=== PATIENT | female | born 1950 | race Caucasian/White ===

== ENCOUNTER 2021-08-17 14:08 | Outpatient (REF) | payer MEDICARE, OTHER, SELFPAY ==
[2021-08-17 14:57] LABS: Anion Gap 12 (12-20); Blood Urea Nitrogen 16 mg/dL (9-16); Calcium 9.1 mg/dL (8.4-10.2); Carbon Dioxide 26 mmol/L (22-29); Chloride 109 mmol/L (96-108); Estimated Glomerular Filt Rate 40; Potassium 4.4 mmol/L (3.3-5.1); Sodium 143 mmol/L (135-145)
== END 2021-08-17 14:09 | disposition home or self-care (01) ==
LOC: HO.LAB 14:08
PROVIDERS: PCP Family Medicine; Visit Provider Internal Medicine Nephrology
DX: N18.30 Chronic kidney disease, stage 3 unspecified (principal)
CPT/HCPCS: 36415; 80051; 82310; 82565; 84520

== ENCOUNTER 2023-12-11 14:16 | Outpatient (REF) | payer MEDICARE, OTHER, MEDICAID, SELFPAY ==
[2023-12-11 15:42] LABS: Anion Gap 14 (12-20); Blood Urea Nitrogen 17 mg/dL (9-16); Carbon Dioxide 26 mmol/L (22-29); Chloride 108 mmol/L (96-108); Estimated Glomerular Filt Rate 37; Potassium 4.3 mmol/L (3.3-5.1); Sodium 144 mmol/L (135-145)
[2023-12-11 17:53] LABS: Creatinine Urine 399.76 mg/dL; Protein/Creatinine Ratio, Ur 0.29 (<0.2); Total Protein Urine Random 114 mg/dL (<12)
== END 2023-12-11 14:17 | disposition home or self-care (01) ==
LOC: HO.LAB 14:16
PROVIDERS: PCP Family Medicine; Visit Provider Internal Medicine Nephrology
DX: I10 Essential (primary) hypertension (principal)
CPT/HCPCS: 36415; 80051; 82565; 82570; 84156; 84520

== ENCOUNTER 2023-12-13 16:08 | Outpatient (AMB) | payer MEDICARE, OTHER, MEDICAID, SELFPAY ==
--- NOTE | 2023-12-13 16:11 | HO.NEPHOV ---
HPI HPI Comments History of Present Illness Details I had the privilege of seeing Leila in follow-up of her chronic kidney disease and hypertension. Her overactive bladder symptoms have been better on medications. She had gastric sleeve surgery by Dr. Dominguez in the past. She has not had any renal stones. Her current medications also had helped her losing some weight. She does not have any flank pain, hematuria, dysuria, nausea, vomiting, suprapubic pain, shortness of breath, pedal edema or orthostatic symptoms. She avoids nonsteroidal anti-inflammatories and maintain good hydration. All other systemic symptoms were reviewed and were negative. [facility] Medical History (Updated 12/13/23 @ 16:14 by Rony Spears MD) Chronic kidney disease Hypertension Surgical History (Updated 12/13/23 @ 16:17 by Helen Ye MA) History of back surgery History of cholecystectomy H/O gastric sleeve H/O hand surgery H/O wrist surgery History of ankle surgery Family History (Updated 12/13/23 @ 16:17 by Helen Ye MA) Father Cancer Social History (Updated 12/13/23 @ 16:15 by Helen Ye MA) Alcohol intake: never Patient Tobacco Use Status: Former Tobacco user Use of substances other than those prescribed or required for medical reasons: No Vital Signs 12/13/23 16:13 Height 5 ft 6 in Weight 249 lb 8 oz BMI 40.3 BP 142/82 H Blood Pressure Location Rt brachial Position Sitting Pulse 67 Pulse Source Pulse Oximeter Pulse Oximetry (%) 98 Oxygen Delivery Method Room Air Physical Exam Vital Signs: Last Vital Signs Pulse 67 12/13/23 16:13 BP 142/82 H 12/13/23 16:13 Pulse Ox 98 12/13/23 16:13 Oxygen Delivery Method Room Air 12/13/23 16:13 BMI result Body Mass Index 40.3 Const General: comfortable and no acute distress Orientation/consciousness: patient oriented x3 HEENT Head: Yes normocephalic Mouth: Normal oral and palatal mucosa present Eyes EOM: EOMs intact bilaterally Neck Neck: Yes supple Resp Auscultation: clear to auscultation bilaterally Cardio Jugular venous distension: no JVD Rate: regular rate GI Palpation (GI): Soft to palpation Auscultation: normal bowel sounds General: Yes no CVA tenderness Back/Spine/Pelvis Back: no CVA tenderness Skin General skin exam: no rashes or lesions noted Neuro General: patient oriented x3 and moves all extremities Extrem General: Yes no pedal edema Assessment & Plan Assessment & Plan (1) CKD (chronic kidney disease) stage 3, GFR 30-59 ml/min: Code(s): N18.30 - Chronic kidney disease, stage 3 unspecified Qualifiers: Chronic kidney disease stage 3 subtype: stage 3a (GFR 45-59) Qualified Code(s): N18.31 - Chronic kidney disease, stage 3a (2) Hypertension: Code(s): I10 - Essential (primary) hypertension Qualifiers: Hypertension type: primary hypertension Qualified Code(s): I10 - Essential (primary) hypertension Plan Leila has mild CKD from vascular disease. Her renal functions had been stable. She has on a low-sodium diet. She should continue to do regular exercise. Her volume status is optimal. She is on MALKA-inhibitor. Her blood pressure had been well controlled on current medication regimen. She maintains good hydration. She avoids nonsteroidal anti-inflammatories. Her electrolytes are acceptable. She does not have significant proteinuria. She will benefit from a bit more weight loss. She likely is a great candidate for [employer] or [employer] I did not make any changes today. All questions answered. Follow-up given. Orders: Orders Electrolytes Today I10 - Essential (primary) hypertension, N18.30 - Chronic kidney disease, stage 3 unspecified Calcium Today I10 - Essential (primary) hypertension, N18.30 - Chronic kidney disease, stage 3 unspecified Protein Creatinine Ratio, Ur Today I10 - Essential (primary) hypertension, N18.30 - Chronic kidney disease, stage 3 unspecified Creatinine Today I10 - Essential (primary) hypertension, N18.30 - Chronic kidney disease, stage 3 unspecified Blood Urea Nitrogen Today I10 - Essential (primary) hypertension, N18.30 - Chronic kidney disease, stage 3 unspecified Coding Level of Care Code Est Pt Level 3 (52606) Diagnoses Stage 3a chronic kidney disease N18.31 Chronic kidney disease stage 3 subtype: stage 3a (GFR 45-59) Primary hypertension I10 Hypertension type: primary hypertension Results Reviewed Nephrology Results: Sodium 144 mmol/L (135-145) 12/11/23 Potassium 4.3 mmol/L (3.3-5.1) 12/11/23 Chloride 108 mmol/L (96-108) 12/11/23 Carbon Dioxide 26 mmol/L (22-29) 12/11/23 BUN 17 mg/dL (9-16) H 12/11/23 Creatinine 1.39 mg/dL (0.5-1.4) 12/11/23 Calcium 9.1 mg/dL (8.4-10.2) 08/17/21 Phosphorus 2.9 MG/DL (2.7-4.5) 12/31/19 Urine Protein TRACE (NEG - TRACE) 12/31/19 Urine Creatinine 399.76 mg/dL 12/11/23 Protein/Creatinin Ratio 0.29 (<0.2) H 12/11/23
[2023-12-13 16:13] VITALS: BP 142/82; PULSE 67; O2SAT 98; BMI 40.3
== END 2023-12-13 16:36 | disposition home or self-care (01) ==
LOC: HO.HKA 16:08
PROVIDERS: PCP Family Medicine; Visit Provider Internal Medicine Nephrology
DX: N18.31 Chronic kidney disease, stage 3a (principal); I10 Essential (primary) hypertension
CPT/HCPCS: 99213

== ENCOUNTER → 2023-12-13 16:08 | Outpatient (BNVA) | payer MEDICARE, OTHER, MEDICAID, SELFPAY | PROVIDERS: PCP Family Medicine; Visit Provider Internal Medicine Nephrology | DX: I12.9 Hypertensive chronic kidney disease with stage 1 through stage 4 chronic kidney disease, or unspecified chronic kidney disease (principal); N18.31 Chronic kidney disease, stage 3a | CPT/HCPCS: 99212 ==

== ENCOUNTER 2024-01-26 11:01 | Day surgery (SDC) | payer MEDICARE, OTHER, SELFPAY ==
--- NOTE | 2024-01-26 11:55 | P.CONAN_ITS ---
[facility] / [facility] Active Problems Active Problems: All Active Problems CKD (chronic kidney disease) stage 3, GFR 30-59 ml/min (Acute) Hypertension (Acute) Past Medical History Medical History (Updated 01/25/24 @ 12:12 by Dayna Walsh RN) IBS (irritable bowel syndrome) GERD (gastroesophageal reflux disease) Depression Asthma Elevated cholesterol Diabetes Chronic kidney disease Hypertension Family History Family History (Updated 12/13/23 @ 16:17 by Helen Ye MA) Father Cancer Family history of problems with anesthesia: No Surgical History Surgical History (Updated 01/25/24 @ 12:19 by Dayna Walsh RN) Hx of laparoscopic gastric banding Hx of foot surgery History of tubal ligation History of esophagogastroduodenoscopy (EGD) H/O colonoscopy History of back surgery History of cholecystectomy H/O gastric sleeve H/O hand surgery H/O wrist surgery History of ankle surgery History of Problems with Anesthesia: No Social History Social History (Updated 12/13/23 @ 16:15 by Helen Ye MA) Alcohol intake: never Patient Tobacco Use Status: Former Tobacco user Quit Date: 25 years Meds Allergies Allergy/AdvReac Type Severity Reaction Status Date / Time codeine [CODEINE] Allergy Unknown NAUSEA & Unverified 07/30/20 14:53 VOMITING oxycodone [From PERCOCET] Allergy Unknown NAUSEA & Unverified 07/30/20 14:53 VOMITING theophylline [From JEANETH-DUR] Allergy Unknown NAUSEA & Unverified 07/30/20 14:53 VOMITING Active Medications: Current Medications Sodium Biphosphate/Sodium Phosphate (Sodium Phosphate,[place]-Dibasic 133 Ml Enema) 133 ml MT ONCE PRN PRN Reason: Poor Colonoscopy Prep Results Home Medications Medication Instructions Recorded Confirmed Last Taken Type aspirin 81 mg tablet,delayed 81 mg PO DAILY 12/13/23 01/26/24 Unknown History release cholecalciferol (vitamin D3) 25 25 mcg PO DAILY 12/13/23 01/26/24 Unknown History mcg (1,000 unit) capsule cholecalciferol (vitamin D3) 250 250 mcg PO QDAY 12/13/23 01/26/24 Unknown History mcg (10,000 unit) capsule dulaglutide 4.5 mg/0.5 mL See Rx Instructions .Route .COMPLEX 12/13/23 01/16/24 History subcutaneous pen injector mg (Trulicity) latanoprost 0.005 % eye drops drp ophthalmic (eye) 12/13/23 Unknown History lisinopril 2.5 mg tablet 2.5 mg PO DAILY 12/13/23 01/26/24 Unknown History metoprolol succinate 25 mg 25 mg PO DAILY 12/13/23 01/26/24 Unknown History tablet,extended release 24 hr pravastatin 20 mg tablet 20 mg PO DAILY 12/13/23 01/26/24 Unknown History tizanidine 2 mg tablet 2 mg PO TID 12/13/23 01/26/24 Unknown History tramadol 50 mg tablet 50 mg PO Q6H PRN Pain 12/13/23 01/26/24 Unknown History trazodone 300 mg tablet 300 mg PO BEDTIME 12/13/23 01/26/24 Unknown History venlafaxine 225 mg tablet,extended 225 mg PO DAILY 01/25/24 01/25/24 Unknown History release 24 hr Exam Airway Mallampati Class: IV TM Dist: <=3cm Neck ROM: Full Loose/Missing/Broken Teeth: Yes (very poor dentition with multiple teeth missing and decayed) Heart: rrr Lungs: diminished but clear Other: less than 4 mets, very deconditioned, asymptomatic bundle branch block Assessment and Plan Assessment Anesthesia Assessment: Anesthesia Plan Discussed and Chart Reviewed Final Anesthetic Review Family History of Problems with Anesthesia: No History of Problems with Anesthesia: No NPO: Yes ASA Class: III Final Preanesthetic Review: No Changes in Pt Med Stat, Meds/Allgs Chart Reviewed, Consent Obtained/Reviewed and Anes Risks/Benef Reviewed Patient Risk: High Procedure Risk: Intermediate Anesthetic Plan Anesthetic Plan: MAC: Disposition: Standard PACU
[2024-01-26 12:02] VITALS: BMI 37.6
[2024-01-26 12:28] LABS: Glucose, Whole Blood 161 mg/dL (60-115)
[2024-01-26] MEDS: Lactated Ringers 1,000 ML 50 ML IVCONT (12:31)
--- NOTE | 2024-01-26 13:31 | P.BOP_ITS ---
Brief Operative Note Date of Service: 01/26/24 Pre-op diagnosis: Screening Post-op diagnosis: other (Colon polyps) Procedure: Colonoscopy to the cecum and TI with hot snare polypectomy x 2 at 20cm and AC, and bx/removal of TC polyps Surgeon: Addison Weinstein MD Anesthesia: MAC Was an Entry Driver Operator used for this Procedure?: No Estimated blood loss (mL): 2.0 Pathology: other (A. Polyp at 20cm B. Transverse colon polyps C. Ascending colon polyp) Condition: stable Disposition: PACU
[2024-01-26 13:38] VITALS: BP 90/46; PULSE 66; RESP 16; TEMP 36.1; O2SAT 93
[2024-01-26 13:53] VITALS: BP 116/66; PULSE 66; RESP 16; TEMP 36.3; O2SAT 94
--- NOTE | 2024-01-26 14:08 | OP_ITS ---
DATE OF SERVICE: 01/26/2024 SURGEON: Addison Weinstein MD INDICATIONS: The patient presents for evaluation of personal history of tubular adenoma of the colon and colorectal cancer screening. Full consent has been obtained from her for this, including risks of bleeding and perforation. PREOPERATIVE DIAGNOSIS: Colorectal cancer screening and personal history of tubular adenoma of the colon. POSTOPERATIVE DIAGNOSIS: PROCEDURE PERFORMED: Colonoscopy to the cecum and terminal ileum with hot snare polypectomy x2, and biopsy and removal of polyps. ESTIMATED BLOOD LOSS: COMPLICATIONS: ANESTHESIA: Monitored anesthesia care. ASSISTANTS: SPECIMENS: POSTOPERATIVE DIAGNOSES: Colorectal cancer screening and personal history of tubular adenoma of the colon, colon polyps, diverticulosis, and internal hemorrhoids. DESCRIPTION OF PROCEDURE: The patient was placed in the left lateral decubitus position. The digital rectal exam revealed no abnormalities. The Olympus video pediatric colonoscope was entered into the rectum and advanced easily to the cecum. Once in the cecum, I did identify normal-appearing cecal pouch with appendiceal orifice and a normal-appearing ileocecal valve. The terminal ileum was cannulated and appeared normal. The scope was withdrawn back in the colon. The entire cecum and ileocecal valve appeared normal. The scope was slowly withdrawn assessing all mucosal surfaces carefully. Preparation was excellent. In the ascending colon was an approximately 1.2 cm polyp on a short stalk, which was removed by hot snare polypectomy and then recovered by retrieving it with a retrieval net. This was brought out of the patient. The scope was advanced back to the polypectomy site, which appeared clean, without any sign of residual polyp nor bleeding. In the transverse colon were 3 less than 5 mm polyps, which were each biopsied and completely removed with a cold biopsy forceps. At 20 cm was an approximately 8 mm polyp, which was removed by hot snare polypectomy and recovered by suction. The polypectomy site appeared clean, without any sign of residual polyp nor bleeding. I did not visualize any other polyps, colitis, nor angiodysplasia. There was a mild amount of sigmoid diverticulosis. In the rectum, scope was retroflexed visualizing internal hemorrhoids, but no other pathology. The rectal mucosa appeared normal. The scope was straightened and withdrawn from the patient. She tolerated the procedure well and was returned to the recovery area in stable condition. IMPRESSION: 1. Colon polyps. 2. Diverticulosis. 3. Internal hemorrhoids. PLAN: The results of the pathology will be checked. She was advised not to use any aspirin or NSAIDs for 1 week. I would recommend a repeat colonoscopy in 3 years for further surveillance given her findings today, and previous history of polyps as well. This has been discussed with her daughter. MD ROBYN Lindo/ELOY / [phone]
== END 2024-01-26 14:27 | disposition home or self-care (01) ==
PROVIDERS: PCP Family Medicine; Visit Provider Internal Medicine
PROC: 0DJD8ZZ Inspection of Lower Intestinal Tract, Via Natural or Artificial Opening Endoscopic (ICD-10-PCS; CPT 45378; principal; 2024-01-26 12:40)
DX: Z12.11 Encounter for screening for malignant neoplasm of colon (principal); Z86.010 Personal history of colon polyps; D12.2 Benign neoplasm of ascending colon; D12.3 Benign neoplasm of transverse colon; D12.5 Benign neoplasm of sigmoid colon; K57.30 Diverticulosis of large intestine without perforation or abscess without bleeding; K64.8 Other hemorrhoids; K58.2 Mixed irritable bowel syndrome; K21.9 Gastro-esophageal reflux disease without esophagitis; E11.22 Type 2 diabetes mellitus with diabetic chronic kidney disease; I12.9 Hypertensive chronic kidney disease with stage 1 through stage 4 chronic kidney disease, or unspecified chronic kidney disease; N18.9 Chronic kidney disease, unspecified; E78.5 Hyperlipidemia, unspecified; J45.909 Unspecified asthma, uncomplicated; F32.A Depression, unspecified; Z79.82 Long term (current) use of aspirin; Z79.85 Long-term (current) use of injectable non-insulin antidiabetic drugs; Z98.84 Bariatric surgery status; Z79.899 Other long term (current) drug therapy; Z98.890 Other specified postprocedural states; Z87.891 Personal history of nicotine dependence
CPT/HCPCS: 45385; 45380; 82947; 88305; J2250; J2704

== ENCOUNTER 2024-05-20 10:21 | Day surgery (SDC) | payer MEDICARE, OTHER, SELFPAY ==
[2024-05-14 08:37] VITALS: BMI 41.1
[2024-05-20 12:14] VITALS: BP 124/68; PULSE 86; RESP 16; TEMP 36.1; O2SAT 96
[2024-05-20 12:24] LABS: Glucose, Whole Blood 170 mg/dL (60-115)
[2024-05-20] MEDS: Tetracaine HCl/PF 0.5% Oph Sol 4 ML DROPS 1 DROP EYE-RIGHT (12:27)
[2024-05-20] MEDS: Cyclopentolate 1 % Ophth Sol 2 ML DRPBTL 1 DROP EYE-RIGHT ×3 (12:28→12:38)
[2024-05-20] MEDS: Ketorolac Tromethamine 0.5% Op 10 ML DROPS 1 DROP EYE-RIGHT ×3 (12:29→12:39)
[2024-05-20] MEDS: Tropicamide 1 % Ophth Sol 3 ML BTL 1 DROP EYE-RIGHT ×3 (12:31→12:40)
[2024-05-20] MEDS: Phenylephrine HCL 2.5% Oph SoL 2 ML BOTTLE 1 DROP EYE-RIGHT ×3 (12:32→12:41)
--- NOTE | 2024-05-20 12:40 | P.CONAN_ITS ---
HPI - Anesthesia Eval Consult details Narrative: 73 yo female patient for Right cataract extraction, IOL insertion Anesthesia Pre-Procedure Meds Is the patient on any of the following meds?: SGLT2 Inhib (Last dose of jardiance 05/16/24) PMFSH Active Problems Active Problems: All Active Problems (Updated 05/20/24 @12:26 by Karen Funk MD) CKD (chronic kidney disease) stage 3, GFR 30-59 ml/min (Acute) Hypertension (Acute) Morbid Obesity BMI 41.1 DM Asthma Depression Glaucoma GERD Hypercholesterolemia Past Medical History Medical History Vitamin D deficiency Urinary incontinence Spasm of back muscles Right bundle branch block Posterior tibial tendon dysfunction (PTTD) of left lower extremity Posterior tibial tendon dysfunction Pes planovalgus Overactive bladder Osteoarthritis Morbid obesity Mild binge-eating disorder Subluxation Irritable bowel syndrome with both constipation and diarrhea Internal hemorrhoids Insomnia Hyperlipidemia Tubular adenoma of colon Hx of adenomatous polyp of colon Diverticulosis Chronic renal insufficiency Bilateral foot pain IBS (irritable bowel syndrome) GERD (gastroesophageal reflux disease) Depression Asthma Elevated cholesterol Diabetes Chronic kidney disease Hypertension Family History Family History (Updated 12/13/23 @ 16:17 by Helen Ye MA) Father Cancer Family history of problems with anesthesia: No Surgical History Surgical History Hx of tonsillectomy Hx of thumb surgery Hx of carpal tunnel repair Hx of laparoscopic gastric banding Hx of foot surgery History of tubal ligation History of esophagogastroduodenoscopy (EGD) H/O colonoscopy History of back surgery History of cholecystectomy H/O gastric sleeve H/O hand surgery H/O wrist surgery History of ankle surgery History of Problems with Anesthesia: No Social History Social History (Updated 12/13/23 @ 16:15 by Helen Ye MA) Are you a primary pediatric critical care nurse to a significant other at home: No Do you presently have visiting nurse or other home services: No Alcohol intake: never Patient Tobacco Use Status: Former Tobacco user Use of substances other than those prescribed or required for medical reasons: No Advance Directives: No Advance Directives Information Provided: Yes Advance Directives on File: No Nutrition Risks: No Nutritional Risk Patient : No : No Meds Allergies Allergy/AdvReac Type Severity Reaction Status Date / Time codeine [CODEINE] Allergy Unknown NAUSEA & Verified 05/20/24 12:21 VOMITING oxycodone [From PERCOCET] Allergy Unknown NAUSEA & Verified 05/20/24 12:21 VOMITING theophylline [From JEANETH-DUR] Allergy Unknown NAUSEA & Verified 05/20/24 12:21 VOMITING brimonidine Allergy Unknown Verified 05/20/24 12:21 Active Medications: Current Medications Povidone Iodine (Povidone Iodine 5 % Ophth Soln 30 Ml Bottle) 1 appl EYE-RIGHT PREOP PRN PRN Reason: Pre-Op Surgical Implant Prophy Home Medications ?Medication ?Instructions ?Recorded ?Confirmed ?Last Taken ?Type aspirin 81 mg tablet,delayed 81 mg PO DAILY 12/13/23 05/20/24 05/13/24 History release latanoprost 0.005 % eye drops 1 drp ophthalmic (eye) BEDTIME 12/13/23 05/20/24 05/19/24 History lisinopril 2.5 mg tablet 2.5 mg PO DAILY 12/13/23 05/20/24 05/19/24 History metoprolol succinate 25 mg 25 mg PO DAILY 12/13/23 05/20/24 05/19/24 History tablet,extended release 24 hr pravastatin 20 mg tablet 20 mg PO DAILY 12/13/23 05/20/24 05/19/24 History tizanidine 2 mg tablet 2 mg PO TID 12/13/23 05/20/24 05/19/24 History trazodone 300 mg tablet 300 mg PO BEDTIME 12/13/23 05/20/24 05/19/24 History venlafaxine 225 mg tablet,extended 225 mg PO DAILY 01/25/24 05/20/24 05/20/24 History release 24 hr acetaminophen 500 mg tablet 1,000 mg PO TID PRN Pain 05/14/24 05/14/24 Unknown History cholecalciferol (vitamin D3) 125 125 mcg PO DAILY 05/14/24 05/14/24 Unknown History mcg (5,000 unit) tablet (Vitamin D3) empagliflozin 10 mg tablet 10 mg PO QAM 05/14/24 05/20/24 05/16/24 History (Jardiance) multivitamin-ferrous 1 tab PO DAILY 05/14/24 05/20/24 05/19/24 History fumarate-folic acid 18 mg-400 mcg tablet (Centrum Women) omeprazole 20 mg capsule,delayed 20 mg PO DAILY 05/14/24 05/20/24 05/19/24 History release oxybutynin chloride 15 mg 15 mg PO DAILY 05/14/24 05/20/24 05/19/24 History tablet,extended release 24 hr Exam Height,Weight and Vital Signs: Height 5 ft 4.17 in Weight 109.2 kg Last Vital Signs Temp 97.0 F 05/20/24 12:14 Pulse 86 05/20/24 12:14 Resp 16 05/20/24 12:14 BP 124/68 05/20/24 12:14 Pulse Ox 96 05/20/24 12:14 O2 Del Method Room Air 05/20/24 12:14 Pertinent Lab Results Pertinent Lab Results: Laboratory Tests 05/20/24 12:20 POC Glucose 170 H Airway Mallampati Class: III TM Dist: >3cm Neck ROM: Full Loose/Missing/Broken Teeth: Yes (Poor dentition. Many missing, many broken teeth) Heart: RRR Lungs: CTAB Assessment and Plan Assessment Anesthesia Assessment: Anesthesia Plan Discussed and Chart Reviewed Final Anesthetic Review Family History of Problems with Anesthesia: No History of Problems with Anesthesia: No NPO: Yes ASA Class: III Final Preanesthetic Review: No Changes in Pt Med Stat, Meds/Allgs Chart Rev iewed, Consent Obtained/Reviewed and Anes Risks/Benef Reviewed Patient Risk: Intermediate Procedure Risk: Low Assessment/Block/Sedation in SS: Assess/Block/Sedation-SS Anesthetic Plan Anesthetic Plan: MAC: Disposition: Standard PACU
--- NOTE | 2024-05-20 12:51 | MHC.SHP ---
Pre-Procedural Eval Section A - 24 Hr Update-Section A only Date of Service: 05/20/24 The patient is an INPATIENT: No Changes since office visit: No Cold of Flu in the past 2 weeks, No New Medical Problems, No Changes in Medication and No Patient answered all questions The patient has been examined within 24 hours of the surgical procedure. The History & Physical has been completed within 30 days and I have reviewed it.: Yes Section B - Complete if H&P > 30 days Chief Complaint: Age-related nuclear cataract, right eye,glaucoma Allergies: Allergies Allergy/AdvReac Type Severity Reaction Status Date / Time codeine [CODEINE] Allergy Unknown NAUSEA & Verified 05/20/24 12:21 VOMITING oxycodone [From PERCOCET] Allergy Unknown NAUSEA & Verified 05/20/24 12:21 VOMITING theophylline [From JEANETH-DUR] Allergy Unknown NAUSEA & Verified 05/20/24 12:21 VOMITING brimonidine Allergy Unknown Verified 05/20/24 12:21 Plan Diagnosis/Plan: Unchanged I have reviewed the history and physical and performed a pertinent physical examination on my patient. No changes have occurred unless specified. Time Spent With Patient Time: Total time managing care of this patient today ____ minutes.
--- NOTE | 2024-05-20 13:44 | HO.PNOPHT ---
Ophthalmology Procedure Procedure Date of Service: 05/20/24 Ophthalmology Viscoelastic: Healon Duet Dual Pack Pro Ophthalmology Lenses: IOL Acrysof MP - [id number] (17) Procedure Notes: PREOPERATIVE DIAGNOSIS: Decreased visual acuity right eye secondary to cataract and glaucoma. POSTOPERATIVE DIAGNOSIS: Same PROCEDURE: Right cataract extraction with intraocular lens insertion and trabeculectomy, right eye SURGEON: Maksim Russo M.D. ANESTHESIA: Topical/MAC ESTIMATED BLOOD LOSS: None COMPLICATIONS: None After obtaining informed consent, the patient was brought to the operating room suite and placed in the supine position. After adequate sedation per anesthesia, topical drops of Tetracaine were given to the right eye. The eye was then prepped and draped in the usual sterile fashion. The operating room microscope was then positioned over the right eye and a lid speculum placed. 2% Lidocaine was instilled subconjunctivally. After awaiting 30 seconds, a paracentesis was created superiorly. Hemostasis was then achieved using wet field cautery. Mitomycin .4mg/ml was then placed in the conjunctival pocket and held in place for two minutes. The subconjunctival pocket was then irrigated copiously with 20 mls of BSS. Paracentesis was then created. Viscoelastic was then instilled into the anterior chamber. A crescent blade was then utilized to create a partial thickness sclera wound followed by advancement to clear cornea with the crescent blade. A keratome was then utilized to enter the anterior chamber. Capsulotomy forceps were then utilized to create a continuous circular tear capsulotomy. Hydrodissection and hydrodelineation were carried out until adequate mobilization of the nucleus occurred. Phacoemulsification was utilized to remove the dense central nucleus followed by removal of remnant cortical material utilizing the automated aspiration irrigation unit. Viscoelastic was then instilled into the posterior capsular bag followed by placement of a posterior chamber intraocular lens. Attention was then directed to create a trabeculectomy. A Amada punch was then utilized to create the trabeculectomy. The residual Viscoelastic was then removed utilizing the automated IA machine. The egress of aqueous was evaluated and found to be appropriate. The conjunctiva was then closed with a 9-0 vicryl suture. BSS was then instilled into the anterior chamber creating a superior bleb, without obvious leakage. Intracameral injection of Vigamox 0.3%, 0.1 ml and subtenon injection of Kenalog-40 0.2 ml was given followed by an atropine drop. The patient tolerated the procedure well and will be followed up in the a.m.
[2024-05-20 13:46] VITALS: BP 158/77; PULSE 56; RESP 16; TEMP 36.1; O2SAT 98
== END 2024-05-20 13:56 | disposition home or self-care (01) ==
PROVIDERS: PCP Family Medicine; Visit Provider Ophthalmology
PROC: (CPT 66985; principal; 2024-05-20 13:00)
PROC: (CPT 66170; 2024-05-20 13:00)
DX: H25.11 Age-related nuclear cataract, right eye (principal); H40.1121 Primary open-angle glaucoma, left eye, mild stage; H52.4 Presbyopia; H18.413 Arcus senilis, bilateral; H43.393 Other vitreous opacities, bilateral; I10 Essential (primary) hypertension; E11.9 Type 2 diabetes mellitus without complications; J45.909 Unspecified asthma, uncomplicated; Z79.899 Other long term (current) drug therapy; Z87.891 Personal history of nicotine dependence; Z88.5 Allergy status to narcotic agent; Z88.8 Allergy status to other drugs, medicaments and biological substances; Z79.85 Long-term (current) use of injectable non-insulin antidiabetic drugs
CPT/HCPCS: 66984; 66170; 82947; J2250; J3010; J3301; J7315; V2630

== ENCOUNTER 2024-05-31 15:43 | Outpatient (REF) | payer MEDICARE, OTHER, SELFPAY ==
[2024-05-31 21:20] LABS: Protein/Creatinine Ratio, Ur 0.15 (<0.2); Total Protein Urine Random 20 mg/dL (<12)
[2024-05-31 21:28] LABS: Anion Gap 16 (12-20); Blood Urea Nitrogen 20 mg/dL (9-16); Calcium 9.8 mg/dL (8.4-10.2); Carbon Dioxide 27 mmol/L (22-29); Chloride 105 mmol/L (96-108); Estimated Glomerular Filt Rate 32; Potassium 4.7 mmol/L (3.3-5.1); Sodium 143 mmol/L (135-145)
== END 2024-05-31 15:44 | disposition home or self-care (01) ==
LOC: HO.LAB 15:43
PROVIDERS: PCP Family Medicine; Visit Provider Internal Medicine Nephrology
DX: I12.9 Hypertensive chronic kidney disease with stage 1 through stage 4 chronic kidney disease, or unspecified chronic kidney disease (principal); N18.30 Chronic kidney disease, stage 3 unspecified
CPT/HCPCS: 36415; 80051; 82310; 82565; 82570; 84156; 84520

== ENCOUNTER 2024-06-03 10:12 | Day surgery (SDC) | payer MEDICARE, OTHER, SELFPAY ==
[2024-05-14 08:43] VITALS: BMI 41.1
[2024-06-03 12:04] VITALS: BP 150/66; PULSE 53; RESP 20; TEMP 36.3; O2SAT 98
[2024-06-03 12:04] LABS: Glucose, Whole Blood 154 mg/dL (60-115)
[2024-06-03] MEDS: Tetracaine HCl/PF 0.5% Oph Sol 4 ML DROPS 1 DROP EYE-LEFT (12:08)
[2024-06-03] MEDS: Tropicamide 1 % Ophth Sol 3 ML BTL 1 DROP EYE-LEFT (12:09)
[2024-06-03] MEDS: Lactated Ringers 500 ML 20 ML IVCONT (12:19)
--- NOTE | 2024-06-03 12:28 | PC.NURSE ---
documented manual form for drops called pharmacy they discounted patients meds unable to scan meds
--- NOTE | 2024-06-03 13:00 | P.CONAN_ITS ---
HPI - Anesthesia Eval Consult details Narrative: 73 yo F presenting for left cataract extraction IOL insertion and left trabeculectomy. Anesthesia Pre-Procedure Meds Is the patient on any of the following meds?: SGLT2 Inhib If yes to any meds - educate patient: Pt education - increased risk of aspiration and/or euvolemic DKA PMFSH Active Problems Active Problems: All Active Problems CKD (chronic kidney disease) stage 3, GFR 30-59 ml/min (Acute) Hypertension (Acute) Past Medical History Medical History Vitamin D deficiency Urinary incontinence Spasm of back muscles Right bundle branch block Posterior tibial tendon dysfunction (PTTD) of left lower extremity Posterior tibial tendon dysfunction Pes planovalgus Overactive bladder Osteoarthritis Morbid obesity Mild binge-eating disorder Subluxation Irritable bowel syndrome with both constipation and diarrhea Internal hemorrhoids Insomnia Hyperlipidemia Tubular adenoma of colon Hx of adenomatous polyp of colon Diverticulosis Chronic renal insufficiency Bilateral foot pain IBS (irritable bowel syndrome) GERD (gastroesophageal reflux disease) Depression Asthma Elevated cholesterol Diabetes Chronic kidney disease Hypertension Family History Family History (Updated 12/13/23 @ 16:17 by Helen Ye MA) Father Cancer Family history of problems with anesthesia: No Surgical History Surgical History Hx of tonsillectomy Hx of thumb surgery Hx of carpal tunnel repair Hx of laparoscopic gastric banding Hx of foot surgery History of tubal ligation History of esophagogastroduodenoscopy (EGD) H/O colonoscopy History of back surgery History of cholecystectomy H/O gastric sleeve H/O hand surgery H/O wrist surgery History of ankle surgery History of Problems with Anesthesia: No Social History Social History (Updated 12/13/23 @ 16:15 by Helen Ye MA) Are you a primary rn transitional care to a significant other at home: No Do you presently have visiting nurse or other home services: No Alcohol intake: never Patient Tobacco Use Status: Former Tobacco user Use of substances other than those prescribed or required for medical reasons: No Are you DNR?: No Advance Directives: No Advance Directives Information Provided: Yes Advance Directives on File: No Recently lost weight without trying: No Nutrition Risks: No Nutritional Risk Patient : No : No Meds Allergies Allergy/AdvReac Type Severity Reaction Status Date / Time codeine [CODEINE] Allergy Unknown NAUSEA & Verified 05/20/24 12:21 VOMITING oxycodone [From PERCOCET] Allergy Unknown NAUSEA & Verified 05/20/24 12:21 VOMITING theophylline [From JEANETH-DUR] Allergy Unknown NAUSEA & Verified 05/20/24 12:21 VOMITING brimonidine Allergy Unknown Verified 05/20/24 12:21 Active Medications: Current Medications Lactated Ringer's (Lr) 500 mls @ 20 mls/hr IVCONT .Q24H KARIE Last Admin: 06/03/24 12:19 Dose: 20 mls/hr Povidone Iodine (Povidone Iodine 5 % Ophth Soln 30 Ml Bottle) 1 appl EYE-LEFT PREOP PRN PRN Reason: Pre-Op Surgical Implant Prophy Home Medications ?Medication ?Instructions ?Recorded ?Confirmed ?Last Taken ?Type aspirin 81 mg tablet,delayed 81 mg PO DAILY 12/13/23 05/20/24 05/13/24 History release latanoprost 0.005 % eye drops 1 drp ophthalmic (eye) BEDTIME 12/13/23 05/20/24 05/19/24 History lisinopril 2.5 mg tablet 2.5 mg PO DAILY 12/13/23 05/20/24 05/19/24 History metoprolol succinate 25 mg 25 mg PO DAILY 12/13/23 05/20/24 05/19/24 History tablet,extended release 24 hr pravastatin 20 mg tablet 20 mg PO DAILY 12/13/23 05/20/24 05/19/24 History tizanidine 2 mg tablet 2 mg PO TID 12/13/23 05/20/24 05/19/24 History trazodone 300 mg tablet 300 mg PO BEDTIME 12/13/23 05/20/24 05/19/24 History venlafaxine 225 mg tablet,extended 225 mg PO DAILY 01/25/24 05/20/24 05/20/24 History release 24 hr acetaminophen 500 mg tablet 1,000 mg PO TID PRN Pain 05/14/24 05/14/24 Unknown History cholecalciferol (vitamin D3) 125 125 mcg PO DAILY 05/14/24 05/14/24 Unknown History mcg (5,000 unit) tablet (Vitamin D3) empagliflozin 10 mg tablet 10 mg PO QAM 05/14/24 05/20/24 05/31/24 History (Jardiance) multivitamin-ferrous 1 tab PO DAILY 05/14/24 05/20/24 05/19/24 History fumarate-folic acid 18 mg-400 mcg tablet (Centrum Women) omeprazole 20 mg capsule,delayed 20 mg PO DAILY 05/14/24 05/20/24 05/19/24 History release oxybutynin chloride 15 mg 15 mg PO DAILY 05/14/24 05/20/24 05/19/24 History tablet,extended release 24 hr Exam Exam Date and Time: June 03, 2024 1229 Height,Weight and Vital Signs: Height 5 ft 4.17 in Weight 109.2 kg Last Vital Signs Temp 97.4 F 06/03/24 12:04 Pulse 53 06/03/24 12:04 Resp 20 06/03/24 12:04 BP 150/66 H 06/03/24 12:04 Pulse Ox 98 06/03/24 12:04 O2 Del Method Room Air 06/03/24 12:04 Pertinent Lab Results Pertinent Lab Results: Laboratory Tests 06/03/24 11:58 POC Glucose 154 H Airway Mallampati Class: III TM Dist: <=3cm Neck ROM: Full Loose/Missing/Broken Teeth: Yes (poor dentition, many missing and broken teeth) Heart: S1S2 Lungs: CTAB Assessment and Plan Assessment Anesthesia Assessment: Anesthesia Plan Discussed and Chart Reviewed Final Anesthetic Review Family History of Problems with Anesthesia: No History of Problems with Anesthesia: No NPO: Yes ASA Class: III Final Preanesthetic Review: No Changes in Pt Med Stat, Meds/Allgs Chart Reviewed, Consent Obtained/Reviewed and Anes Risks/Benef Reviewed Patient Risk: Intermediate Procedure Risk: Low Anesthetic Plan Anesthetic Plan: MAC: and Agree w/ Assess. and Plan Disposition: Standard PACU
--- NOTE | 2024-06-03 14:19 | MHC.SHP ---
Pre-Procedural Eval Section A - 24 Hr Update-Section A only Date of Service: 06/03/24 The patient is an INPATIENT: No Changes since office visit: No Cold of Flu in the past 2 weeks, No New Medical Problems, No Changes in Medication and No Patient answered all questions The patient has been examined within 24 hours of the surgical procedure. The History & Physical has been completed within 30 days and I have reviewed it.: Yes Section B - Complete if H&P > 30 days Chief Complaint: Age-related nuclear cataract, left eye,glaucoma Allergies: Allergies Allergy/AdvReac Type Severity Reaction Status Date / Time codeine [CODEINE] Allergy Unknown NAUSEA & Verified 05/20/24 12:21 VOMITING oxycodone [From PERCOCET] Allergy Unknown NAUSEA & Verified 05/20/24 12:21 VOMITING theophylline [From JEANETH-DUR] Allergy Unknown NAUSEA & Verified 05/20/24 12:21 VOMITING brimonidine Allergy Unknown Verified 05/20/24 12:21 Plan Diagnosis/Plan: Unchanged I have reviewed the history and physical and performed a pertinent physical examination on my patient. No changes have occurred unless specified. Time Spent With Patient Time: Total time managing care of this patient today ____ minutes.
--- NOTE | 2024-06-03 14:19 | HO.PNOPHT ---
Ophthalmology Procedure Procedure Date of Service: 06/03/24 Ophthalmology Viscoelastic: Healon Duet Dual Pack Pro Ophthalmology Lenses: IOL Acrysof MP - MA60AC (17.5) Procedure Notes: PREOPERATIVE DIAGNOSIS: Decreased visual acuity left eye secondary to cataract POSTOPERATIVE DIAGNOSIS: Same PROCEDURE: Left cataract extraction with intraocular lens insertion SURGEON: Maksim Russo M.D. ANESTHESIA: Topical/MAC ESTIMATED BLOOD LOSS: None COMPLICATIONS: None After obtaining informed consent, the patient was brought to the operation room suite and placed in the supine position. After adequate sedation per anesthesia, topical drops of Tetracaine were given to the left eye. The eye was then prepped and draped in the usual sterile fashion. The operating room microscope was then positioned over the operative eye and a lid speculum placed. A paracentesis was created. Viscoelastic was then instilled into the anterior chamber. A three plane incision was then created temporally, utilizing a 2.85 mm keratome. Capsulotomy forceps were then utilized to create a circular tear capsulotomy. Hydrodissection and hydrodelineation were carried out until adequate mobilization of the nucleus occurred. Phacoemulsification was then utilized to remove the dense central nucleus followed by removal of the cortical material utilizing the automated aspiration irrigation unit. Viscoat elastic was instilled into the posterior capsular bag followed by placement of a posterior chamber intraocular lens without difficulty. The residual Viscoat elastic was then removed utilizing the automated IA machine. The wound was check and found to be watertight. The patient tolerated the procedure well and the lid speculum was removed. Intracameral injection of Vigamox 0.1 mL followed by a subtenon injection of Kenalog-40 0.2 mL were administered. The patient will be seen in the a.m.
--- NOTE | 2024-06-03 15:16 | HO.PNOPHT ---
Ophthalmology Procedure Procedure Date of Service: 06/03/24 Ophthalmology Viscoelastic: Healon Duet Dual Pack Pro Ophthalmology Lenses: IOL Acrysof MP - MA60AC (17.5) Procedure Notes: PREOPERATIVE DIAGNOSIS: Decreased visual acuity left eye secondary to cataract and glaucoma POSTOPERATIVE DIAGNOSIS: Same PROCEDURE: Left cataract extraction with intraocular lens insertion and trabeculectomy, left eye SURGEON: Maksim Russo M.D. ANESTHESIA: Topical/MAC ESTIMATED BLOOD LOSS: None COMPLICATIONS: None After obtaining informed consent, the patient was brought to the operating room suite and placed in the supine position. After adequate sedation per anesthesia, topical drops of Tetracaine were given to the left eye. The eye was then prepped and draped in the usual sterile fashion. The operating room microscope was then positioned over the left eye and a lid speculum placed. 2% Lidocaine was instilled subconjunctivally. After awaiting 30 seconds, a paracentesis was created superiorly. Hemostasis was then achieved using wet field cautery. Mitomycin .4mg/ml was then placed in the conjunctival pocket and held in place for two minutes. The subconjunctival pocket was then irrigated copiously with 20 mls of BSS. Paracentesis was then created. Viscoelastic was then instilled into the anterior chamber. A crescent blade was then utilized to create a partial thickness sclera wound followed by advancement to clear cornea with the crescent blade. A keratome was then utilized to enter the anterior chamber. Capsulotomy forceps were then utilized to create a continuous circular tear capsulotomy. Hydrodissection and hydrodelineation were carried out until adequate mobilization of the nucleus occurred. Phacoemulsification was utilized to remove the dense central nucleus followed by removal of remnant cortical material utilizing the automated aspiration irrigation unit. Viscoelastic was then instilled into the posterior capsular bag followed by placement of a posterior chamber intraocular lens. Attention was then directed to create a trabeculectomy. A Amada punch was then utilized to create the trabeculectomy. The residual Viscoelastic was then removed utilizing the automated IA machine. The egress of aqueous was evaluated and found to be appropriate. The conjunctiva was then closed with a 9-0 vicryl suture. BSS was then instilled into the anterior chamber creating a superior bleb, without obvious leakage. Intracameral injection of Vigamox 0.3%, 0.1 ml and subtenon injection of Kenalog-40 0.2 ml was given followed by an atropine drop. The patient tolerated the procedure well and will be followed up in the a.m.
[2024-06-03 15:17] VITALS: BP 144/47; PULSE 58; RESP 16; TEMP 36.2; O2SAT 99
== END 2024-06-03 15:33 | disposition home or self-care (01) ==
PROVIDERS: PCP Family Medicine; Visit Provider Ophthalmology
PROC: (CPT 66985; principal; 2024-06-03 12:30)
PROC: (CPT 66170; 2024-06-03 12:30)
DX: H25.12 Age-related nuclear cataract, left eye (principal); H40.1122 Primary open-angle glaucoma, left eye, moderate stage; H18.413 Arcus senilis, bilateral; H43.393 Other vitreous opacities, bilateral; I10 Essential (primary) hypertension; E11.9 Type 2 diabetes mellitus without complications; J45.909 Unspecified asthma, uncomplicated; Z79.85 Long-term (current) use of injectable non-insulin antidiabetic drugs; Z79.82 Long term (current) use of aspirin; Z79.899 Other long term (current) drug therapy; Z88.5 Allergy status to narcotic agent; Z88.8 Allergy status to other drugs, medicaments and biological substances; Z87.891 Personal history of nicotine dependence
CPT/HCPCS: 66984; 66170; 82947; J2250; J3010; J3301; J7315; V2630

== ENCOUNTER 2024-06-05 14:37 | Outpatient (AMB) | payer MEDICARE, OTHER, SELFPAY ==
--- NOTE | 2024-06-05 14:51 | HO.NEPHOV ---
Vital Signs 06/05/24 14:52 Height 5 ft 5 in Weight 240 lb 4 oz BMI 40.0 BP 136/86 Blood Pressure Location Rt brachial Position Sitting Pulse 66 Pulse Source Pulse Oximeter Pulse Oximetry (%) 96 Oxygen Delivery Method Room Air Intake Visit Reasons: CKD-6 mo fu w/ labs/ Conf History Tutor Required: No Accompanied by: Self / Same As Patient Allergies codeine [CODEINE] Allergy (Unknown, Verified 06/05/24 14:54) NAUSEA & VOMITING oxycodone [From PERCOCET] Allergy (Unknown, Verified 06/05/24 14:54) NAUSEA & VOMITING theophylline [From JEANETH-DUR] Allergy (Unknown, Verified 06/05/24 14:54) NAUSEA & VOMITING brimonidine Allergy (Verified 06/05/24 14:54) Unknown HPI Comments Details: I had the privilege of seeing Leila in follow-up of her chronic kidney disease and hypertension. Her overactive bladder symptoms have been better on medications. She had gastric sleeve surgery by Dr. Dominguez in the past. She has not had any renal stones. Her current medications also had helped her losing some weight. She does not have any flank pain, hematuria, dysuria, nausea, vomiting, suprapubic pain, shortness of breath, pedal edema or orthostatic symptoms. She avoids nonsteroidal anti-inflammatories and maintain good hydration. She recently had cataract surgery done in both her eyes. All other systemic symptoms were reviewed and were negative. [facility] Medical History Vitamin D deficiency Urinary incontinence Spasm of back muscles Right bundle branch block Posterior tibial tendon dysfunction (PTTD) of left lower extremity Posterior tibial tendon dysfunction Pes planovalgus Overactive bladder Osteoarthritis Morbid obesity Mild binge-eating disorder Subluxation Irritable bowel syndrome with both constipation and diarrhea Internal hemorrhoids Insomnia Hyperlipidemia Tubular adenoma of colon Hx of adenomatous polyp of colon Diverticulosis Chronic renal insufficiency Bilateral foot pain IBS (irritable bowel syndrome) GERD (gastroesophageal reflux disease) Depression Asthma Elevated cholesterol Diabetes Chronic kidney disease Hypertension Surgical History Hx of tonsillectomy Hx of thumb surgery Hx of carpal tunnel repair Hx of laparoscopic gastric banding Hx of foot surgery History of tubal ligation History of esophagogastroduodenoscopy (EGD) H/O colonoscopy History of back surgery History of cholecystectomy H/O gastric sleeve H/O hand surgery H/O wrist surgery History of ankle surgery Family History Father Cancer Social History Are you a primary healthcare advisory services manager to a significant other at home: No Do you presently have visiting nurse or other home services: No Alcohol intake: never Patient Tobacco Use Status: Former Tobacco user Physical Exam Vital Signs: Last Vital Signs Pulse 66 06/05/24 14:52 BP 136/86 06/05/24 14:52 Pulse Ox 96 06/05/24 14:52 Oxygen Delivery Method Room Air 06/05/24 14:52 BMI result Body Mass Index 40.0 Const General: comfortable and no acute distress Orientation/consciousness: patient oriented x3 HEENT Head: Yes normocephalic Mouth: Normal oral and palatal mucosa present Eyes EOM: EOMs intact bilaterally Neck Neck: Yes supple Resp Auscultation: clear to auscultation bilaterally Cardio Jugular venous distension: no JVD Rate: regular rate GI Palpation (GI): Soft to palpation Auscultation: normal bowel sounds General: Yes no CVA tenderness Back/Spine/Pelvis Back: no CVA tenderness Skin General skin exam: no rashes or lesions noted Neuro General: patient oriented x3 and moves all extremities Extrem General: Yes no pedal edema Results Reviewed Nephrology Results: Sodium 143 mmol/L (135-145) 05/31/24 Potassium 4.7 mmol/L (3.3-5.1) 05/31/24 Chloride 105 mmol/L (96-108) 05/31/24 Carbon Dioxide 27 mmol/L (22-29) 05/31/24 BUN 20 mg/dL (9-16) H 05/31/24 Creatinine 1.57 mg/dL (0.5-1.4) H 05/31/24 Calcium 9.8 mg/dL (8.4-10.2) 05/31/24 Phosphorus 2.9 MG/DL (2.7-4.5) 12/31/19 Urine Protein TRACE (NEG - TRACE) 12/31/19 Urine Creatinine 131.50 mg/dL 05/31/24 Protein/Creatinin Ratio 0.15 (<0.2) 05/31/24 Assessment & Plan Assessment & Plan (1) CKD (chronic kidney disease) stage 3, GFR 30-59 ml/min: Code(s): N18.30 - Chronic kidney disease, stage 3 unspecified Category: Medical Qualifiers: Chronic kidney disease stage 3 subtype: stage 3a (GFR 45-59) Qualified Code(s): N18.31 - Chronic kidney disease, stage 3a (2) Hypertension: Code(s): I10 - Essential (primary) hypertension Category: Medical Qualifiers: Hypertension type: primary hypertension Qualified Code(s): I10 - Essential (primary) hypertension Plan Leila has mild CKD from vascular disease. Her renal functions had been stable. She has on a low-sodium diet. She should continue to do regular exercise. Her volume status is optimal. She is on MALKA-inhibitor. Her blood pressure had been well controlled on current medication regimen. She maintains good hydration. She avoids nonsteroidal anti-inflammatories. Her electrolytes are acceptable. She does not have significant proteinuria. She will benefit from a bit more weight loss. She is on Jardiance . I did not make any changes today. All questions answered. Follow-up given. Orders: Orders Creatinine 6 Months I10 - Essential (primary) hypertension, N18.31 - Chronic kidney disease, stage 3a Blood Urea Nitrogen 6 Months I10 - Essential (primary) hypertension, N18.31 - Chronic kidney disease, stage 3a Electrolytes 6 Months I10 - Essential (primary) hypertension, N18.31 - Chronic kidney disease, stage 3a Coding Level of Care Code Est Pt Level 4 (38463) Diagnoses Stage 3a chronic kidney disease N18.31 Chronic kidney disease stage 3 subtype: stage 3a (GFR 45-59) Primary hypertension I10 Hypertension type: primary hypertension
[2024-06-05 14:52] VITALS: BP 136/86; PULSE 66; O2SAT 96; BMI 40.0
== END 2024-06-05 15:12 | disposition home or self-care (01) ==
PROVIDERS: PCP Family Medicine; Visit Provider Internal Medicine Nephrology
DX: N18.31 Chronic kidney disease, stage 3a (principal); I10 Essential (primary) hypertension
CPT/HCPCS: 99214

== ENCOUNTER → 2024-06-05 14:37 | Outpatient (BNVA) | payer MEDICARE, OTHER, SELFPAY | PROVIDERS: PCP Family Medicine; Visit Provider Internal Medicine Nephrology | DX: I12.9 Hypertensive chronic kidney disease with stage 1 through stage 4 chronic kidney disease, or unspecified chronic kidney disease (principal); N18.31 Chronic kidney disease, stage 3a; Z98.84 Bariatric surgery status | CPT/HCPCS: 99212 ==

== ENCOUNTER 2024-11-15 16:05 | Outpatient (REF) | payer MEDICARE, OTHER, SELFPAY ==
--- OUTSIDE RECORDS SUMMARY | 2024-11-15 16:48 | XMS_ITS | Clinical Summary ---
Author Organization Unknown Care Team Providers Care Snow Technician Name Role Phone RICHARD SAM, ZEE Unavailable Unavailable ESTEFANÍA PT, HILARIO Unavailable Unavailable CHAU OT, LEISA Unavailable Unavailable EDISON MANAGER BENCH, SHANNON Unavailable Unavailable MORALES MANAGER BENCH, CHI Unavailable Unavailable CONDINO SEC ACCOUNTANT/WILEY, GERRI Unavailable Unav ailable Payers Payer Name Policy Type Policy Number Effective Date Expira tion Date MEDICARE.NGS.PDGM [id number] Problems Condition Name Condition Details Condition Category Status Onset Date Resolution Date Last Treatment Date Treating Clinician Comments ENCOUNTER FOR OTHER ORTHOPEDIC AFTERCARE Active 2020-11 00:00: 00 HYPERTENSIVE CHRONIC KIDNEY DISEASE W STG 1-4/UNSP CHR KDNY Active 11-13 00:00: 00 TYPE 2 DIABETES MELLITUS W DIABETIC CHRONIC KIDNEY DISEASE Active 11-13 00:00: 00 CHRONIC KIDNEY DISEASE, UNSPECIFIED Active 11-13 00:00: 00 CHRONIC OBSTRUCTIVE PULMONARY DISEASE, UNSPECIFIED Active 11-13 00:00: 00 UNSPECIFIED ASTHMA, UNCOMPLICATE D Active 11-13 00:00: 00 MAJOR DEPRESSIVE DISORDER, RECURRENT, UNSPECIFIED Active 11-13 00:00: 00 NONRHEUMATIC AORTIC (VALVE) STENOSIS Active 11-13 00:00: 00 HYPERLIPIDEM IA, UNSPECIFIED Active 11-13 00:00: 00 OVERACTIVE BLADDER Active 11-13 00:00: 00 INSOMNIA, UNSPECIFIED Active 2020-11 00:00: 00 GASTRO-ESOPH AGEAL REFLUX DISEASE WITHOUT ESOPHAGITIS Active 11-13 00:00: 00 MORBID (SEVERE) OBESITY DUE TO EXCESS CALORIES Active 11-13 00:00: 00 BODY MASS INDEX [BMI]40.0-44 .9, ADULT Active 11-13 00:00: 00 OTHER GROUP HOME (CURRENT) DRUG THERAPY Active 11-13 00:00: 00 ARTHRODESIS STATUS Active 03-02 00:00: 00 Allergies, Adverse Reactions, Alerts Allergy Name Allergy Type Status Severity Reaction(s) Onset Date Inactive Date Treating Clinician Comments CODEINE Propensity to adverse reactions Active 2021-11 12:30:5 9 Medications Ordered Medication Name Filled Medication Name Start Date Stop Date Current Medication? Ordering Clinician Indication Dosage Frequency Signature (SIG) Comments Components latanoprost 0.005 % eye drops 2020-11 00:00: 00 Yes [id number] DRY EYES Per instruc tions BEDTIME Per instructio ns BEDTIME (route: ophthalmic (eye)) Med Classific ation: Ophthalmi c Agents hydromorpho ne 2 mg tablet 2020-11 00:00: 00 Yes [id number] PAIN Per instruc tions NEEDED Per instructio ns NEEDED (route: oral) Med Classific ation: Analgesic , Anti-infl ammatory or Antipyret ic acetaminoph en 500 mg tablet 2020-11 00:00: 00 Yes [id number] FOR PAIN Per instruc tions EVERY 8 HOURS NEEDED Per instructio ns EVERY 8 HOURS NEEDED (route: oral) Med Classific ation: Analgesic , Anti-infl ammatory or Antipyret ic cholecalcif hope (vitamin D3) 125 mcg (5,000 unit) capsule 2020-11 00:00: 00 Yes [id number] SUPPLEMENT Per instruc tions DAILY Per instructio ns DAILY (route: oral) Med Classific ation: Electroly te Balance-N utritiona l Products metoprolol succinate ER 25 mg tablet,exte nded release 24 hr 2020-11 00:00: 00 Yes [id number] HTN Per instruc tions DAILY Per instructio ns DAILY (route: oral) Med Classific ation: Cardiovas cular Therapy Agents trazodone 300 mg tablet 08-11 00:00: 00 Yes [id number] SLEEP Per instruc tions DAILY AT BEDTIME Per instructio ns DAILY AT BEDTIME (route: oral) Med Classific ation: Central Nervous System Agents venlafaxine ER 150 mg capsule,ext ended release 24 hr 2020-11 0-08 00:00: 00 Yes [id number] ANXIETY Per instruc tions DAILY Per instructio ns DAILY (route: oral) Med Classific ation: Central Nervous System Agents lisinopril 2.5 mg tablet 2020-11 1-22 00:00: 00 Yes [id number] HTN Per instruc tions DAILY AT BEDTIME Per instructio ns DAILY AT BEDTIME (route: oral) Med Classific ation: Cardiovas cular Therapy Agents oxybutynin chloride ER 15 mg tablet,exte nded release 24 hr 2020-11 2-04 00:00: 00 Yes [id number] BLADDER CONTROL Per instruc tions DAILY Per instructio ns DAILY (route: oral) Med Classific ation: Genitouri nary Therapy aspirin 325 mg tablet,january yed release 2020-11 2-16 00:00: 00 Yes [id number] ANTICOAGULA NT 1 tablet DAILY 1 tablet DAILY (route: oral) Med Classific ation: Analgesic , Anti-infl ammatory or Antipyret ic Trulicity 1.5 mg/0.5 mL subcutaneou s pen injector 2020-11 2-10 00:00: 00 Yes [id number] DIABETES Per instruc tions WEEKLY Per instructio ns WEEKLY (route: subcutaneo us) Med Classific ation: Endocrine omeprazole 20 mg capsule,del ayed release 11-13 00:00: 00 Yes [id number] GERD 1 capsule 2 TIMES DAILY 1 capsule 2 TIMES DAILY (route: oral) Med Classific ation: Gastroint estinal Therapy Agents oxycodone 5 mg capsule - 00:00: 00 Yes [id number] PAIN. 1 capsule EVERY 4 HOURS 1 capsule EVERY 4 HOURS (route: oral) Med Classific ation: Analgesic , Anti-infl ammatory or Antipyret ic pravastatin 20 mg tablet - 00:00: 00 Yes [id number] CHOLESTEROL 1 tablet DAILY 1 tablet DAILY (route: oral) Med Classific ation: Cardiovas cular Therapy Agents Vitamin C 500 mg tablet 1-07 00:00: 00 Yes [id number] SUPPLEMENT 1 tablet DAILY 1 tablet DAILY (route: oral) Med Classific ation: Electroly te Balance-N utritiona l Products LISINOPRIL ORAL 02-08 00:00: 00 03-20 00:00 :00 No 2.5 mg1 TABLET DAILY 2.5 mg1 TABLET DAILY (route: ) Alternate Route: BY MOUTH. Med Classific ation: CARDIOVAS CULAR THERAPY AGENTS Vital Signs Vital Name Observation Time Observation Value Commen ts Temperature 2022-01-14 09:20:00.000 97.1 [degF] Temperature 2022-01-12 14:09:00.000 97 [degF] Temperature 2022-01-06 14:24:00.000 97.3 [degF] Temperature 2021-12-30 12:00:00.000 98 [degF] Temperature 2021-12-28 12:58:00.000 98 [degF] Temperature 2021-12-24 11:22:00.000 97.9 [degF] Temperature 2021-12-23 13:40:00.000 98.2 [degF] Temperature 2021-12-22 14:29:00.000 96.8 [degF] Temperature 2021-12-16 14:47:00.000 97 [degF] Temperature 2021-11-30 13:29:00.000 97.5 [degF] Temperature 2021-11-25 13:41:00.000 97.9 [degF] Temperature 2021-11-24 15:22:00.000 97.3 [degF] Temperature 2021-11-19 12:16:00.000 97.5 [degF] Height 2021-11-19 12:16:00.000 65 [in_us] Pulse 2022-01-14 09:20:00.000 65 /min Pulse 2022-01-12 14:09:00.000 67 /min Pulse 2022-01-06 14:24:00.000 60 /min Pulse 2021-12-30 12:00:00.000 65 /min Pulse 2021-12-28 12:58:00.000 63 /min Pulse 2021-12-24 11:22:00.000 71 /min Pulse 2021-12-23 13:40:00.000 75 /min Pulse 2021-12-22 14:29:00.000 60 /min Pulse 2021-12-16 14:47:00.000 78 /min Pulse 2021-11-30 13:29:00.000 80 /min Pulse 2021-11-25 13:41:00.000 69 /min Pulse 2021-11-24 15:22:00.000 70 /min Pulse 2021-11-19 12:16:00.000 74 /min O2 Saturation (%) 2022-01-14 09:20:00.000 97 % O2 Saturation (%) 2022-01-12 14:09:00.000 98 % O2 Saturation (%) 2021-12-22 14:29:00.000 98 % O2 Saturation (%) 2021-12-16 14:48:00.000 97 % O2 Saturation (%) 2021-11-24 15:22:00.000 98 % O2 Saturation (%) 2021-11-19 12:16:00.000 96 % Respirations 2022-01-14 09:20:00.000 18 /min Respirations 2022-01-12 14:09:00.000 18 /min Respirations 2022-01-06 14:24:00.000 18 /min Respirations 2021-12-30 12:00:00.000 18 /min Respirations 2021-12-28 12:58:00.000 18 /min Respirations 2021-12-24 11:22:00.000 18 /min Respirations 2021-12-23 13:40:00.000 18 /min Respirations 2021-12-22 14:29:00.000 18 /min Respirations 2021-12-16 14:47:00.000 18 /min Respirations 2021-11-30 13:29:00.000 18 /min Respirations 2021-11-25 13:41:00.000 18 /min Respirations 2021-11-24 15:22:00.000 16 /min Respirations 2021-11-19 12:16:00.000 16 /min Weight (lbs) 2021-11-19 12:16:00.000 245 [lb_av] Systolic Blood Pressure 2022-01-14 09:20:00.000 138 mm [Hg] Systolic Blood Pressure 2022-01-12 14:09:00.000 128 mm [Hg] Systolic Blood Pressure 2022-01-06 14:24:00.000 140 mm [Hg] Systolic Blood Pressure 2021-12-30 12:00:00.000 140 mm [Hg] Systolic Blood Pressure 2021-12-28 12:58:00.000 140 mm [Hg] Systolic Blood Pressure 2021-12-24 11:22:00.000 146 mm [Hg] Systolic Blood Pressure 2021-12-23 13:40:00.000 126 mm [Hg] Systolic Blood Pressure 2021-12-22 14:29:00.000 138 mm [Hg] Systolic Blood Pressure 2021-12-16 14:47:00.000 138 mm [Hg] Systolic Blood Pressure 2021-11-30 13:29:00.000 152 mm [Hg] Systolic Blood Pressure 2021-11-25 13:41:00.000 120 mm [Hg] Systolic Blood Pressure 2021-11-24 15:22:00.000 140 mm [Hg] Systolic Blood Pressure 2021-11-19 12:16:00.000 134 mm [Hg] Diastolic Blood Pressure 2022-01-14 09:20:00.000 84 mm [Hg] Diastolic Blood Pressure 2022-01-12 14:09:00.000 68 mm [Hg] Diastolic Blood Pressure 2022-01-06 14:24:00.000 90 mm [Hg] Diastolic Blood Pressure 2021-12-30 12:00:00.000 86 mm [Hg] Diastolic Blood Pressure 2021-12-28 12:58:00.000 84 mm [Hg] Diastolic Blood Pressure 2021-12-24 11:22:00.000 80 mm [Hg] Diastolic Blood Pressure 2021-12-23 13:40:00.000 74 mm [Hg] Diastolic Blood Pressure 2021-12-22 14:29:00.000 72 mm [Hg] Diastolic Blood Pressure 2021-12-16 14:47:00.000 86 mm [Hg] Diastolic Blood Pressure 2021-11-30 13:29:00.000 86 mm [Hg] Diastolic Blood Pressure 2021-11-25 13:41:00.000 78 mm [Hg] Diastolic Blood Pressure 2021-11-24 15:22:00.000 90 mm [Hg] Diastolic Blood Pressure 2021-11-19 12:16:00.000 86 mm [Hg] Plan of Treatment Planned Activity Planned Date Details Comments Future Scheduled Test AGENCY MAY PERFORM A RESUMPTION OF CARE VISIT FOLLOWING ANY HOSPITAL ADMISSION. PHYSICAL THERAPY TO EVALUATE, ASSESS AND MONITOR, PROVIDE SKILLED THERAPEUTIC INTERVENTION, ACTIVITY, EDUCATION, AND TRAINING TO ADDRESS: [code = AGENCY MAY PERFORM A RESUMPTION OF CARE VISIT FOLLOWING ANY HOSPITAL ADMISSION. PHYSICAL THERAPY TO EVALUATE, ASSESS AND MONITOR, PROVIDE SKILLED THERAPEUTIC INTERVENTION, ACTIVITY, EDUCATION, AND TRAINING TO ADDRESS:] Future Scheduled Test TRANSFER T RAINING (PT) [code = TRANSFER TRAINING (PT)] Future Scheduled Test GAIT TRAIN ING (PT) [code = GAIT TRAINING (PT)] Future Scheduled Test NEUROMUSCU LAR RE-EDUCATION / BALANCE RETRAINING (PT) [code = NEUROMUSCULAR RE-EDUCATION / BALANCE RETRAINING (PT)] Future Scheduled Test THERAPEUTI C EXERCISES (PT) [code = THERAPEUTIC EXERCISES (PT)] Future Scheduled Test ENERGY CON SERVATION (PT) [code = ENERGY CONSERVATION (PT)] Future Scheduled Test IDENTIFY F ALL RISK FACTORS AND ESTABLISH HOME EXERCISE PROGRAM TO MINIMIZE FALL RISK (PT) [code = IDENTIFY FALL RISK FACTORS AND ESTABLISH HOME EXERCISE PROGRAM TO MINIMIZE FALL RISK (PT)] Future Scheduled Test DIABETES M ANAGEMENT (PT) [code = DIABETES MANAGEMENT (PT)] Future Scheduled Test ANTICOAGUL ANT THERAPY - PHYSICAL THERAPY [code = ANTICOAGULANT THERAPY - PHYSICAL THERAPY ] Future Scheduled Test PAIN MANAG EMENT (PT) [code = PAIN MANAGEMENT (PT)] Goal 2022-01-14 Patient Goal - WALK Goal Provider Goal - Goal Provider Goal - PT STG: PATIENT WILL DEMONSTRATE IMPROVED TRANSFERS FROM MIN A TO INDEPENDENT WITHIN 5 WEEKS Goal Provider Goal - PT LTG: PATIENT WILL DEMONSTRATE IMPROVED AMBULATION FROM UNABLE TO INDEPENDENT WITHIN 9 WEEKS. PT LTG: PATIENT WILL DEMONSTRATE IMPROVED SAFETY NEGOTIATING STAIRS FROM UNABLE TO INDEPENDENT WITHIN 9 WEEKS. PT STG: PATIENT WILL DEMONSTRATE INDEPENDENCE IN HOME EXERCISE PROGRAM OF STRENGTHENING EXERCISES BALANCE EXERCISES AND PROGRESSIVE AMBULATION PROGRAM TO ALLOW PATIENT TO CARRY OVER GAINS MADE DURING SKILLED HOME PHYSICAL THERAPY WITHIN 5 WEEKS. PT LTG: PATIENT WILL DEMONSTRATE INCREASED STRENGTH OF BILAT LES FROM 4- /5 TO 4/5 WITHIN 9 WEEKS. IN ORDER TO RETURN TO INDEPENDENT COMMUNITY MOBILITY SKILLS. PT LTG: PATIENT / CAREGIVER WILL DEMONSTRATE UNDERSTANDING OF ENERGY CONSERVATION MEASURES, EVIDENCED BY INCREASED ACTIVITY TOLERANCE INCREASING FROM ASSISTED HOME MOBILITY TO INDEPENDENT COMMUNITY MOBILITY SKILLS WITHIN 9 WEEKS PT LTG: PATIENT WILL DEMONSTRATE REDUCED FALL RISK EVIDENCED BY TUG TEST (CUT SCORE >11 SECONDS INDICATES INCREASED FALL RISK) IMPROVING FROM UNABLE TO 11 WITHIN 9 WEEKS. Goal Provider Goal - Goal Provider Goal - PT LTG: PATIENT WILL DEMONSTRATE IMPROVED FUNCTIONAL STRENGTH EVIDENCED BY FIVE TIMES SIT TO STAND TEST (CUT SCORE >12 SECONDS INDICATES AN INCREASED FALL RISK) IMPROVING FROM UNABLE TO 12 SEC WITHIN 9 WEEKS. Goal Provider Goal - Goal Provider Goal - PATIENT/CAREGIVER WILL DEMONSTRATE ADHERENCE TO FALL REDUCTION SELF MANAGEMENT TO MINIMIZE FALL RISK BY DISCHARGE. Goal Provider Goal - PATIENT/CAREGIVER WILL BE ABLE TO IDENTIFY SIGNS OF HYPER- AND HYPOGLYCEMIA AND VERBALIZE HOW TO MANAGE SYMPTOMS. Goal Provider Goal - PT GOAL: PATIENT WILL NOT EXHIBIT SIGNS AND SYMPTOMS OF ANTICOAGULANT TOXICITY. Goal Provider Goal - PT GOAL: PATIENT/CAREGIVER WILL VERBALIZE UNDERSTANDING OF PAIN MANAGEMENT BY DISCHARGE. Reason for Visit INDEPENDENT IN THE HOME Encounters Start Date/Time End Date/Time Encounter Type Admission Type Attending [facility] Care Department Encounter ID Discharge Date Discharge Status Discharge Condition Discharge Reason Percent Goals Met 2021-11-19 00:00:00 2022-01-14 00:00:00 Outpatient HILARIO CUMMINGS [facility] [id number] 2022-01-14 00:00:00 DISCHARGE TO HOME OR SELF CARE INDEPENDEN T IN THE HOME HH OR PAL- GOALS MET 100.00
[2024-11-15 17:10] LABS: Anion Gap 11 (12-20); Blood Urea Nitrogen 15 mg/dL (9-16); Carbon Dioxide 28 mmol/L (22-29); Chloride 109 mmol/L (96-108); Estimated Glomerular Filt Rate 39; Potassium 4.7 mmol/L (3.3-5.1); Sodium 143 mmol/L (135-145)
== END 2024-11-15 16:06 | disposition home or self-care (01) ==
LOC: HO.LAB 16:05
PROVIDERS: PCP Family Medicine; Visit Provider Internal Medicine Nephrology
DX: I10 Essential (primary) hypertension (principal); N18.31 Chronic kidney disease, stage 3a
CPT/HCPCS: 36415; 80051; 82565; 84520

== ENCOUNTER 2024-11-18 14:35 | Outpatient (AMB) | payer MEDICARE, OTHER, SELFPAY ==
--- NOTE | 2024-11-18 14:43 | HO.NEPHOV_ITS ---
Vital Signs 11/18/24 14:44 Height 5 ft 5 in Weight 247 lb 2 oz BMI 41.1 BP 140/80 H Blood Pressure Location Rt brachial Position Sitting Pulse 58 Pulse Source Pulse Oximeter Pulse Oximetry (%) 96 Oxygen Delivery Method Room Air Intake Visit Reasons: CKD/ Conf Help Desk Operator Required: No Accompanied by: Self / Same As Patient Allergies codeine [CODEINE] Allergy (Unknown, Verified 11/18/24 14:44) NAUSEA & VOMITING oxycodone [From PERCOCET] Allergy (Unknown, Verified 11/18/24 14:44) NAUSEA & VOMITING theophylline [From JEANETH-DUR] Allergy (Unknown, Verified 11/18/24 14:44) NAUSEA & VOMITING brimonidine Allergy (Verified 11/18/24 14:44) Unknown HPI Comments Details: Leila in follow-up of her chronic kidney disease and hypertension. Her overactive bladder symptoms have been better on medications. She had gastric sleeve surgery by Dr. Dominguez in the past. She has not had any renal stones. Her current medications also had helped her losing some weight. She does not have any flank pain, hematuria, dysuria, nausea, vomiting, suprapubic pain, shortness of breath, pedal edema or orthostatic symptoms. She avoids nonsteroidal anti- inflammatories and maintain good hydration. She recently had cataract surgery done in both her eyes. All other systemic symptoms were reviewed and were negative. [facility] Medical History Vitamin D deficiency Urinary incontinence Spasm of back muscles Right bundle branch block Posterior tibial tendon dysfunction (PTTD) of left lower extremity Posterior tibial tendon dysfunction Pes planovalgus Overactive bladder Osteoarthritis Morbid obesity Mild binge-eating disorder Subluxation Irritable bowel syndrome with both constipation and diarrhea Internal hemorrhoids Insomnia Hyperlipidemia Tubular adenoma of colon Hx of adenomatous polyp of colon Diverticulosis Chronic renal insufficiency Bilateral foot pain IBS (irritable bowel syndrome) GERD (gastroesophageal reflux disease) Depression Asthma Elevated cholesterol Diabetes Chronic kidney disease Hypertension Surgical History Hx of tonsillectomy Hx of thumb surgery Hx of carpal tunnel repair Hx of laparoscopic gastric banding Hx of foot surgery History of tubal ligation History of esophagogastroduodenoscopy (EGD) H/O colonoscopy History of back surgery History of cholecystectomy H/O gastric sleeve H/O hand surgery H/O wrist surgery History of ankle surgery Family History Father Cancer Social History Are you a primary infant childcare provider to a significant other at home: No Do you presently have visiting nurse or other home services: No Alcohol intake: never Patient Tobacco Use Status: Former Tobacco user Review of Systems Const All systems reviewed & are unremarkable except as noted in HPI and below Physical Exam Vital Signs: Last Vital Signs Pulse 58 11/18/24 14:44 BP 140/80 H 11/18/24 14:44 Pulse Ox 96 11/18/24 14:44 Oxygen Delivery Method Room Air 11/18/24 14:44 BMI result Body Mass Index 41.1 Const General: comfortable and no acute distress Orientation/consciousness: patient oriented x3 HEENT Head: Yes normocephalic Mouth: Normal oral and palatal mucosa present Eyes EOM: EOMs intact bilaterally Neck Neck: Yes supple Resp Auscultation: clear to auscultation bilaterally Cardio Jugular venous distension: no JVD Rate: regular rate GI Palpation (GI): Soft to palpation Auscultation: normal bowel sounds General: Yes no CVA tenderness Back/Spine/Pelvis Back: no CVA tenderness Skin General skin exam: no rashes or lesions noted Neuro General: patient oriented x3 and moves all extremities Extrem General: Yes no pedal edema Results Reviewed Nephrology Results: Sodium 143 mmol/L (135-145) 11/15/24 Potassium 4.7 mmol/L (3.3-5.1) 11/15/24 Chloride 109 mmol/L (96-108) H 11/15/24 Carbon Dioxide 28 mmol/L (22-29) 11/15/24 BUN 15 mg/dL (9-16) 11/15/24 Creatinine 1.34 mg/dL (0.5-1.4) 11/15/24 Calcium 9.8 mg/dL (8.4-10.2) 05/31/24 Phosphorus 2.9 MG/DL (2.7-4.5) 12/31/19 Urine Protein TRACE (NEG - TRACE) 12/31/19 Urine Creatinine 131.50 mg/dL 05/31/24 Protein/Creatinin Ratio 0.15 (<0.2) 05/31/24 Assessment & Plan Assessment & Plan (1) Hypertension: Code(s): I10 - Essential (primary) hypertension Category: Medical Qualifiers: Hypertension type: primary hypertension Qualified Code(s): I10 - Essential (primary) hypertension (2) CKD (chronic kidney disease) stage 3, GFR 30-59 ml/min: Code(s): N18.30 - Chronic kidney disease, stage 3 unspecified Category: Medical Qualifiers: Chronic kidney disease stage 3 subtype: stage 3a (GFR 45-59) Qualified Code(s): N18.31 - Chronic kidney disease, stage 3a Sunday Dee has mild CKD from vascular disease. Her renal functions had been stable. She has on a low-sodium diet. She should continue to do regular exercise. Her volume status is optimal. She is on AMLKA-inhibitor. Her blood pressure had been well controlled on current medication regimen. She maintains good hydration. She avoids nonsteroidal anti-inflammatories. Her electrolytes are acceptable. She does not have significant proteinuria. She will benefit from a bit more weight loss. She is on Jardiance . I did not make any changes today. All questions answered. Follow-up given Orders: Orders Creatinine 11 Months I10 - Essential (primary) hypertension, N18.31 - Chronic kidney disease, stage 3a Blood Urea Nitrogen 11 Months I10 - Essential (primary) hypertension, N18.31 - Chronic kidney disease, stage 3a Electrolytes 11 Months I10 - Essential (primary) hypertension, N18.31 - Chronic kidney disease, stage 3a Coding Level of Care Code Est Pt Level 4 (70528) Diagnoses Primary hypertension I10 Hypertension type: primary hypertension Stage 3a chronic kidney disease N18.31 Chronic kidney disease stage 3 subtype: stage 3a (GFR 45-59)
[2024-11-18 14:44] VITALS: BP 140/80; PULSE 58; O2SAT 96; BMI 41.1
--- OUTSIDE RECORDS SUMMARY | 2024-11-18 16:50 | XMS_ITS | Clinical Summary ---
Author Organization Unknown Care Team Providers Care Instrument Processing Tech Name Role Phone RICHARD SAM, ZEE Unavailable Unavailable ESTEFANÍA PT, HILARIO Unavailable Unavailable CHAU OT, ELISA Unavailable Unavailable EDISON NEEDLE LEADER, SHANNON Unavailable Unavailable MORALES NEEDLE LEADER, CHI Unavailable Unavailable CONDINO ICE SKATING COACH/WILEY, GERRI Unavailable Unav ailable Payers Payer Name Policy Type Policy Number Effective Date Expira tion Date MEDICARE.NGS.PDGM [id number] Problems Condition Name Condition Details Condition Category [...] .9, ADULT Active 11-13 00:00: 00 OTHER INTERMEDIATE (CURRENT) DRUG THERAPY Active 11-13 00:00: 00 [...] % eye drops 2020-11 00:00: 00 Yes [id number] DRY EYES Per instruc tions BEDTIME Per instructio ns BEDTIME (route: ophthalmic (eye)) Med Classific ation: Ophthalmi c Agents hydromorpho ne 2 mg tablet 2020-11 00:00: 00 Yes [id number] PAIN Per instruc tions NEEDED Per instructio ns NEEDED (route: oral) Med Classific ation: Analgesic , Anti-infl ammatory or Antipyret ic acetaminoph en 500 mg tablet 2020-11 00:00: 00 Yes [id number] FOR PAIN Per instruc tions EVERY 8 HOURS NEEDED Per instructio ns EVERY 8 HOURS NEEDED (route: oral) Med Classific ation: Analgesic , Anti-infl ammatory or Antipyret ic cholecalcif hope (vitamin D3) 125 mcg (5,000 unit) capsule 2020-11 00:00: 00 Yes [id number] SUPPLEMENT Per instruc tions DAILY Per instructio ns DAILY (route: oral) Med Classific ation: Electroly te Balance-N utritiona l Products metoprolol succinate ER 25 mg tablet,exte nded release 24 hr 2020-11 00:00: 00 Yes [id number] HTN Per instruc tions DAILY Per instructio ns DAILY (route: oral) Med Classific ation: Cardiovas cular Therapy Agents trazodone 300 mg tablet 08-11 00:00: 00 Yes [id number] SLEEP Per instruc tions DAILY AT BEDTIME Per instructio ns DAILY AT BEDTIME (route: oral) Med Classific ation: Central Nervous System Agents venlafaxine ER 150 mg capsule,ext ended release 24 hr 2020-11 0-08 00:00: 00 Yes [id number] ANXIETY Per instruc tions DAILY Per instructio ns DAILY (route: oral) Med Classific ation: Central Nervous System Agents lisinopril 2.5 mg tablet 2020-11 1-22 00:00: 00 Yes [id number] HTN Per instruc tions DAILY AT BEDTIME Per instructio ns DAILY AT BEDTIME (route: oral) Med Classific ation: Cardiovas cular Therapy Agents oxybutynin chloride ER 15 mg tablet,exte nded release 24 hr 2020-11 2-04 00:00: 00 Yes [id number] BLADDER CONTROL Per instruc tions DAILY Per instructio ns DAILY (route: oral) Med Classific ation: Genitouri nary Therapy aspirin 325 mg tablet,january yed release 2020-11 2-16 00:00: 00 Yes [id number] ANTICOAGULA NT 1 tablet DAILY 1 tablet DAILY (route: oral) Med Classific ation: Analgesic , Anti-infl ammatory or Antipyret ic Trulicity 1.5 mg/0.5 mL subcutaneou s pen injector 2020-11 2-10 00:00: 00 Yes [id number] DIABETES Per instruc tions WEEKLY Per instructio ns WEEKLY (route: subcutaneo us) Med Classific ation: Endocrine omeprazole 20 mg capsule,del ayed release 11-13 00:00: 00 Yes [id number] GERD 1 capsule 2 TIMES DAILY 1 capsule 2 TIMES DAILY (route: oral) Med Classific ation: Gastroint estinal Therapy Agents oxycodone 5 mg capsule - 00:00: 00 Yes [id number] PAIN. 1 capsule EVERY 4 HOURS 1 capsule EVERY 4 HOURS (route: oral) Med Classific ation: Analgesic , Anti-infl ammatory or Antipyret ic pravastatin 20 mg tablet - 00:00: 00 Yes [id number] CHOLESTEROL 1 tablet DAILY 1 tablet DAILY (route: oral) Med Classific ation: Cardiovas cular Therapy Agents Vitamin C 500 mg tablet 1-07 00:00: 00 Yes [id number] SUPPLEMENT 1 tablet DAILY 1 tablet DAILY [...] End Date/Time Encounter Type Admission Type Attending [facility] Care Department Encounter ID Discharge Date Discharge Status Discharge Condition Discharge Reason Percent Goals Met 2021-11-19 00:00:00 2022-01-14 00:00:00 Outpatient HILARIO CUMMINGS [facility] [id number] 2022-01-14 00:00:00 DISCHARGE TO HOME OR SELF CARE INDEPENDEN T IN THE HOME HH OR PAL- GOALS MET 100.00
--- OUTSIDE RECORDS SUMMARY | 2024-11-18 16:50 | XMS_ITS | Clinical Summary ---
Author Organization Unknown Care Team Providers Care Systems Lead Name Role Phone RICHARD SAM, ZEE Unavailable Unavailable ESTEFANÍA PT, HILARIO Unavailable Unavailable CHAU OT, LEISA Unavailable Unavailable EDISON CYLINDER BATCHER, SHANNON Unavailable Unavailable MORALES CYLINDER BATCHER, CHI Unavailable Unavailable CONDINO MANDOLIN REPAIR PERSON/WILEY, GERRI Unavailable Unav ailable Payers Payer Name Policy Type Policy Number Effective Date Expira tion Date MEDICARE.NGS.PDGM [id number] Problems Condition Name Condition Details Condition Category [...] .9, ADULT Active 11-13 00:00: 00 OTHER RESIDENTIAL (CURRENT) DRUG THERAPY Active 11-13 00:00: 00 [...] % eye drops 2020-11 00:00: 00 Yes [id number] DRY EYES Per instruc tions BEDTIME Per instructio ns BEDTIME (route: ophthalmic (eye)) Med Classific ation: Ophthalmi c Agents hydromorpho ne 2 mg tablet 2020-11 00:00: 00 Yes [id number] PAIN Per instruc tions NEEDED Per instructio ns NEEDED (route: oral) Med Classific ation: Analgesic , Anti-infl ammatory or Antipyret ic acetaminoph en 500 mg tablet 2020-11 00:00: 00 Yes [id number] FOR PAIN Per instruc tions EVERY 8 HOURS NEEDED Per instructio ns EVERY 8 HOURS NEEDED (route: oral) Med Classific ation: Analgesic , Anti-infl ammatory or Antipyret ic cholecalcif hope (vitamin D3) 125 mcg (5,000 unit) capsule 2020-11 00:00: 00 Yes [id number] SUPPLEMENT Per instruc tions DAILY Per instructio ns DAILY (route: oral) Med Classific ation: Electroly te Balance-N utritiona l Products metoprolol succinate ER 25 mg tablet,exte nded release 24 hr 2020-11 00:00: 00 Yes [id number] HTN Per instruc tions DAILY Per instructio ns DAILY (route: oral) Med Classific ation: Cardiovas cular Therapy Agents trazodone 300 mg tablet 08-11 00:00: 00 Yes [id number] SLEEP Per instruc tions DAILY AT BEDTIME Per instructio ns DAILY AT BEDTIME (route: oral) Med Classific ation: Central Nervous System Agents venlafaxine ER 150 mg capsule,ext ended release 24 hr 2020-11 0-08 00:00: 00 Yes [id number] ANXIETY Per instruc tions DAILY Per instructio ns DAILY (route: oral) Med Classific ation: Central Nervous System Agents lisinopril 2.5 mg tablet 2020-11 1-22 00:00: 00 Yes [id number] HTN Per instruc tions DAILY AT BEDTIME Per instructio ns DAILY AT BEDTIME (route: oral) Med Classific ation: Cardiovas cular Therapy Agents oxybutynin chloride ER 15 mg tablet,exte nded release 24 hr 2020-11 2-04 00:00: 00 Yes [id number] BLADDER CONTROL Per instruc tions DAILY Per instructio ns DAILY (route: oral) Med Classific ation: Genitouri nary Therapy aspirin 325 mg tablet,january yed release 2020-11 2-16 00:00: 00 Yes [id number] ANTICOAGULA NT 1 tablet DAILY 1 tablet DAILY (route: oral) Med Classific ation: Analgesic , Anti-infl ammatory or Antipyret ic Trulicity 1.5 mg/0.5 mL subcutaneou s pen injector 2020-11 2-10 00:00: 00 Yes [id number] DIABETES Per instruc tions WEEKLY Per instructio ns WEEKLY (route: subcutaneo us) Med Classific ation: Endocrine omeprazole 20 mg capsule,del ayed release 11-13 00:00: 00 Yes [id number] GERD 1 capsule 2 TIMES DAILY 1 capsule 2 TIMES DAILY (route: oral) Med Classific ation: Gastroint estinal Therapy Agents oxycodone 5 mg capsule - 00:00: 00 Yes [id number] PAIN. 1 capsule EVERY 4 HOURS 1 capsule EVERY 4 HOURS (route: oral) Med Classific ation: Analgesic , Anti-infl ammatory or Antipyret ic pravastatin 20 mg tablet - 00:00: 00 Yes [id number] CHOLESTEROL 1 tablet DAILY 1 tablet DAILY (route: oral) Med Classific ation: Cardiovas cular Therapy Agents Vitamin C 500 mg tablet 1-07 00:00: 00 Yes [id number] SUPPLEMENT 1 tablet DAILY 1 tablet DAILY [...] End Date/Time Encounter Type Admission Type Attending [facility] Care Department Encounter ID Discharge Date Discharge Status Discharge Condition Discharge Reason Percent Goals Met 2021-11-19 00:00:00 2022-01-14 00:00:00 Outpatient HILARIO [facility] [id number] 2022-01-14 00:00:00 DISCHARGE TO HOME OR SELF CARE INDEPENDEN T IN THE HOME HH OR PAL- GOALS MET 100.00
== END 2024-11-18 15:06 | disposition home or self-care (01) ==
PROVIDERS: PCP Family Medicine; Visit Provider Internal Medicine Nephrology
DX: I12.9 Hypertensive chronic kidney disease with stage 1 through stage 4 chronic kidney disease, or unspecified chronic kidney disease (principal); N18.31 Chronic kidney disease, stage 3a
CPT/HCPCS: 99214

== ENCOUNTER → 2024-11-18 14:35 | Outpatient (BNVA) | payer MEDICARE, OTHER, SELFPAY | PROVIDERS: PCP Family Medicine; Visit Provider Internal Medicine Nephrology | DX: I12.9 Hypertensive chronic kidney disease with stage 1 through stage 4 chronic kidney disease, or unspecified chronic kidney disease (principal); N18.31 Chronic kidney disease, stage 3a | CPT/HCPCS: 99212 ==

== ENCOUNTER 2025-10-16 15:20 | Outpatient (REF) | payer MEDICARE, OTHER, SELFPAY ==
[2025-10-16 16:46] LABS: Anion Gap 12 (12-20); Blood Urea Nitrogen 22 mg/dL (9-16); Carbon Dioxide 29 mmol/L (22-29); Chloride 106 mmol/L (96-108); Estimated Glomerular Filt Rate 36; Potassium 4.4 mmol/L (3.3-5.1); Sodium 143 mmol/L (135-145)
== END 2025-10-16 15:21 | disposition home or self-care (01) ==
LOC: HO.LAB 15:20
PROVIDERS: PCP Family Medicine; Visit Provider Internal Medicine Nephrology
DX: I12.9 Hypertensive chronic kidney disease with stage 1 through stage 4 chronic kidney disease, or unspecified chronic kidney disease (principal); N18.31 Chronic kidney disease, stage 3a
CPT/HCPCS: 36415; 80051; 82565; 84520

== ENCOUNTER 2025-10-17 13:48 | Outpatient (AMB) | payer MEDICARE, OTHER, SELFPAY ==
--- NOTE | 2025-10-17 14:19 | HO.NEPHOV ---
Vital Signs 10/17/25 14:22 Height 5 ft 5 in Weight 247 lb 8 oz BMI 41.2 BP 130/80 Blood Pressure Location Rt brachial Position Sitting Pulse 41 L Pulse Source Pulse Oximeter Pulse Oximetry (%) 96 Oxygen Delivery Method Room Air Intake Visit Reasons: Dec follow up-[facility] Payroll Auditor Required: No Accompanied by: Self / Same As Patient Allergies codeine (CODEINE) Allergy (Unknown, Verified 10/17/25 14:20) NAUSEA & VOMITING oxycodone (From PERCOCET) Allergy (Unknown, Verified 10/17/25 14:20) NAUSEA & VOMITING theophylline (From JEANETH-DUR) Allergy (Unknown, Verified 10/17/25 14:20) NAUSEA & VOMITING brimonidine Allergy (Verified 10/17/25 14:20) Unknown HPI Comments Details: Leila in follow-up of her chronic kidney disease and hypertension. Her overactive bladder symptoms have been better on medications. She had gastric sleeve surgery by Dr. Dominguez in the past. She has not had any renal stones. Her current medications also had helped her losing some weight. She does not have any flank pain, hematuria, dysuria, nausea, vomiting, suprapubic pain, shortness of breath, pedal edema or orthostatic symptoms. She avoids nonsteroidal anti-inflammatories and maintain good hydration. She recently had cataract surgery done in both her eyes. All other systemic symptoms were reviewed and were negative. [facility] Medical History Vitamin D deficiency Urinary incontinence Spasm of back muscles Right bundle branch block Posterior tibial tendon dysfunction (PTTD) of left lower extremity Posterior tibial tendon dysfunction Pes planovalgus Overactive bladder Osteoarthritis Morbid obesity Mild binge-eating disorder Subluxation Irritable bowel syndrome with both constipation and diarrhea Internal hemorrhoids Insomnia Hyperlipidemia Tubular adenoma of colon Hx of adenomatous polyp of colon Diverticulosis Chronic renal insufficiency Bilateral foot pain IBS (irritable bowel syndrome) GERD (gastroesophageal reflux disease) Depression Asthma Elevated cholesterol Diabetes Chronic kidney disease Hypertension Surgical History Hx of tonsillectomy Hx of thumb surgery Hx of carpal tunnel repair Hx of laparoscopic gastric banding Hx of foot surgery History of tubal ligation History of esophagogastroduodenoscopy (EGD) H/O colonoscopy History of back surgery History of cholecystectomy H/O gastric sleeve H/O hand surgery H/O wrist surgery History of ankle surgery Family History Father Cancer Social History Are you a primary campground caretaker to a significant other at home: No Do you presently have visiting nurse or other home services: No Alcohol intake: never Patient Tobacco Use Status: Former Tobacco user Review of Systems Const All systems reviewed & are unremarkable except as noted in HPI and below Physical Exam Vital Signs: Last Vital Signs Pulse 41 L 10/17/25 14:22 BP 130/80 10/17/25 14:22 Pulse Ox 96 10/17/25 14:22 Oxygen Delivery Method Room Air 10/17/25 14:22 BMI result Body Mass Index 41.2 Const General: comfortable and no acute distress Orientation/consciousness: patient oriented x3 HEENT Head: Yes normocephalic Mouth: Normal oral and palatal mucosa present Eyes EOM: EOMs intact bilaterally Neck Neck: Yes supple Resp Auscultation: clear to auscultation bilaterally Cardio Jugular venous distension: no JVD Rate: regular rate GI Palpation (GI): Soft to palpation Auscultation: normal bowel sounds General: Yes no CVA tenderness Back/Spine/Pelvis Back: no CVA tenderness Skin General skin exam: no rashes or lesions noted Neuro General: patient oriented x3 and moves all extremities Extrem General: Yes no pedal edema Results Reviewed Nephrology Results: Sodium, (135-145) 143 mmol/L 10/16/25 Potassium, (3.3-5.1) 4.4 mmol/L 10/16/25 Chloride, (96-108) 106 mmol/L 10/16/25 Carbon Dioxide, (22-29) 29 mmol/L 10/16/25 BUN, (9-16) 22 mg/dL H 10/16/25 Creatinine, (0.5-1.4) 1.42 mg/dL H 10/16/25 Calcium, (8.4-10.2) 9.8 mg/dL Δ 05/31/24 Urine Creatinine 131.50 mg/dL 05/31/24 Protein/Creatinin Ratio, (<0.2) 0.15 05/31/24 Assessment & Plan Assessment & Plan (1) CKD (chronic kidney disease) stage 3, GFR 30-59 ml/min: Code(s): N18.30 - Chronic kidney disease, stage 3 unspecified Category: Medical Qualifiers: Chronic kidney disease stage 3 subtype: stage 3a (GFR 45-59) Qualified Code(s): N18.31 - Chronic kidney disease, stage 3a (2) Hypertension: Code(s): I10 - Essential (primary) hypertension Category: Medical Qualifiers: Hypertension type: primary hypertension Qualified Code(s): I10 - Essential (primary) hypertension Plan Leila has CKD from vascular disease. Her renal functions had been stable. She has on a low-sodium diet. She should continue to do regular exercise. Her volume status is optimal. She is on MALKA-inhibitor. Her blood pressure had been well controlled on current medication regimen. She maintains good hydration. She avoids nonsteroidal anti-inflammatories. Her electrolytes are acceptable. She does not have significant proteinuria. She will benefit from a bit more weight loss. I did not make any changes today. All questions answered. Follow-up given Orders: Orders Calcium 1 Year I10 - Essential (primary) hypertension, N18.31 - Chronic kidney disease, stage 3a Creatinine 1 Year I10 - Essential (primary) hypertension, N18.31 - Chronic kidney disease, stage 3a Protein Creatinine Ratio, Ur 1 Year I10 - Essential (primary) hypertension, N18.31 - Chronic kidney disease, stage 3a Electrolytes 1 Year I10 - Essential (primary) hypertension, N18.31 - Chronic kidney disease, stage 3a Blood Urea Nitrogen 1 Year I10 - Essential (primary) hypertension, N18.31 - Chronic kidney disease, stage 3a Coding Level of Care Code Est Pt Level 4 (17212) Diagnoses Stage 3a chronic kidney disease N18.31 Chronic kidney disease stage 3 subtype: stage 3a (GFR 45-59) Primary hypertension I10 Hypertension type: primary hypertension
[2025-10-17 14:22] VITALS: BP 130/80; PULSE 41; O2SAT 96; BMI 41.2
--- OUTSIDE RECORDS SUMMARY | 2025-10-17 18:05 | XMS_ITS | Patient Health Record ---
[facility] Address [address] [place] [address] Care Team Providers Care Corporate Development Intern Name Role Phone Noel SAM, Mauricio Primary Care Provider Lety BrownKathryne Unavailable [phone] Allergies Allergen (clinical drug ingredient) Drug/Non Drug Allergy documented on EMR Reaction Allergy Type Onset Date Status codeine Codeine Unknown Drug Allergy Active Reason For Referral No Information Medications Medication SIG (Take, Route, Frequency, Duration) Notes Start Date End Date Status hydroCHLOROthiazide Active traZODone HCl Active Pravastatin Sodium 20 MG 1 tablet Orally Once a day; Duration: 30 day(s) Active Venlafaxine HCl Acti ve metFORMIN HCl Active Nickel Orthotic Full length . . .; Duration: . 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 [phone] [id number] Leila Tejeda Self - patient is the insured [facility] [address] [place] [address] [phone] [id number] Leila Tejeda Self - patient is the insured Medical (General) History Medical History History ICD Code Arthritis asthma depression diabetic high blood pressure chicken pox Surgical History Surgery Date(Month/Year) disc surgery lap band gall bladder
--- OUTSIDE RECORDS SUMMARY | 2025-10-17 18:05 | XMS_ITS | Patient Health Record ---
Author Organization [facility] Address [address] [place] [address] Care Team Providers Care Support Services Manager Name Role Phone Mauricio Cohen Primary Care Provider Addison Fernández Unavailable [phone] Allergies Allergen (clinical drug ingredient) Drug/Non Drug Allergy documented on EMR Reaction Allergy Type Onset Date Status Codeine Phosphate Unknown Drug Allergy Active acetaminophen / oxycodone Percocet Unknown Drug Allergy Active theophylline Theophylline Unknown Drug Allergy A ctive Reason For Referral No Information Medications Medication SIG (Take, Route, Frequency, Duration) Notes Start Date End Date Status Lisinopril 2.5 mg Tablet 1 tablet Orally Once a day Active Aspir-81 81 MG Tablet Delayed Release 1 tablet Orally Once a day Active Metoprolol Tartrate 25 MG Tablet 1 tablet with food Orally HS Active Tylenol PM Extra Strength 500 MG 2 tablet at bedtime as needed ORALLY HS Active Omeprazole 20 MG Capsule Delayed Release 1 capsule 30 minutes before morning meal Orally twice a day Active Vitamin B12 3000 MCG/ML Liquid as directed Sublingual Once a day Active Centrum Silver 50+Women - Tablet as directed Orally Active oxyBUTYnin 15 mg as directed A ctive Trulicity 4.5 MG/0.5ML Solution Pen-injector Subcutaneous; Duration: 28 Active traZODone HCl 300 MG Tablet 1 Orally Once a day Active Venlafaxine HCl ER 225 MG Tablet Extended Release 24 Hour Oral; Duration: 30 Active Vitamin D 12.5 MCG/0.25ML Liquid 0.25 ml Orally Once a day Ac tive Immunizations Vaccine Route Administration Date Status Comme nts Influenza Unknown 11/26/2014 Administered Social History Social History Additional Details Category Social Info Options Details Miscellaneous: Marital status: Occupation: Retired METAL STAMPER from [employer] Notes: Nonsmoker; no sig. alcohol Nonsmoker; no sig. alcohol Nonsmoker; no sig. alcohol Nonsmoker; no sig. alcohol Problems Problem Type SNOMED Code ICD Code Onset Dates Problem Status W/U Status Risk Notes Problem Screening for malignant neoplasm of colon (110873937) Encounter for screening for malignant neoplasm of colon (Z12.11) Active confirmed Problem History of adenomatous polyp of colon (601968512) History of adenomatous polyp of colon (Z86.010) Active confirmed Problem Diverticular disease of colon (554840759) Diverticulosis of large intestine without perforation or abscess without bleeding (K57.30) Active confirmed Problem Screening for malignant neoplasm of rectum (609157942) Encounter for screening for malignant neoplasm of rectum (Z12.12) Active confirmed Problem Gastroesophageal reflux disease (068189076) Gastroesophageal reflux disease, esophagitis presence not specified (K21.9) Active confirmed Problem Diarrhea (78479372) Diarrhea, unspecified type (R19.7) Active confirmed Problem Irritable bowel syndrome (89562349) Irritable bowel syndrome with both constipation and diarrhea (K58.2) Active confirmed Plan Of Treatment Pending Test Test Name Order Date CELIAC PANEL #10 12/25/2014 Pathology 01/26/2024 Future Test Test Name Order Date COLONOSCOPY 06/02/2016 UPPER GI ENDOSCOPY 11/05/2019 COLONOSCOPY 11/05/2019 COLONOSCOPY 10/31/2023 Insurance Providers Payer Name Payer Address Payer Phone Subscriber Number Group Number Insured Name Patient Relationship to Insured Coverage Start Date Coverage End Date MEDICARE OF [place] [address] [place] [address] [id number] JON PENA Self - patient is the insured [facility] [address] [place] [phone] [id number] JON PENA Self - patient is the insured Medical (General) History Medical History History ICD Code Screening colonoscopy 18-2 008-1 small tubular adenoma removed-mild diverticulosis, internal hemorrhoids Hypertension NIDDM--off meds since the gastric sleeve /2022 on medication Hyperlipidemia Asthma-prn inhaler Depression Denies CO nor CVA Urinary incontinence Colonoscopy in 02/2015--2cm f lat tubular adenoma removed from the transverse colon and > 1cm polyp removed from the ascending colon, and smaller tubular adenomas removed as well Colonoscopy in 08/2016 with 2 small tubu lar adenomas Irritable bowel syndrome with constipati on and diarrhea Renal insufficiency--sees Dr. Spears GERD--upper endoscopy in Jun revealed a moderate-sized hiatal hernia and changes of reflux, but there was no evidence of any esophagitis nor Moran's esophagus Hypertension Colonoscopy in June 0 revealed a small tubular adenoma that was removed. The area of previously placed submucosal ink in the proximal transverse colon was visualized and did not have any residual polyp tissue Surgical History Surgery Date(Month/Year) [facility] Lower back disc surgery Gastric Lap band--lost 80#--Dr. Gan 201 0 Wrist surgery Cyst on bottom of right toe removed Tonsillectomy BTL LAP BAND REMOVED--DR. FOREMAN 04/2016 Left hand surgery arthritis 04/2019 Gastric sleeve in 11/[address] Foreman at [facility] Bilateral foot surgery with [facility]
--- OUTSIDE RECORDS SUMMARY | 2025-10-17 18:05 | XMS_ITS | Clinical Summary ---
Author Organization [facility] Address [address] [place] [address] Phone Care Team Providers Care Supervisor Tank House Name Role Phone Mauricio Cohen MD Primary Care Provider [phone] Allergies Active Allergy Reactions Criticality Noted Date Comments Codeine Other (see comments) 08/17/2021 Oxycodone-Acetaminophen Other (see comments) Theophylline 11/23/2022 Other reaction(s): vomiting ,headache Medications multivitamine, geriatric, (CENTRUM SILVER) tablet Take 1 tablet by mouth 1 (one) time each day Active aspirin (ST PARVEEN) 81 MG EC tablet Take 1 tablet by mouth 1 (one) time each day Active lisinopril 2.5 MG tablet Take 1 tablet by mouth at bed time 01/30/2017 Active metoprolol succinate XL (TOPROL XL) 25 MG 24 hr tablet Take 1 tablet by mouth 1 (one) time each day Active omeprazole (PriLOSEC) [address] capsule Take 1 capsule by mouth 1 (one) time each day Active oxybutynin XL (DITROPAN-XL) 10 MG 24 hr tablet Take 1 tablet by mouth 1 (one) time each day Active traZODone (DESYREL) 300 MG tablet Take 1 tablet by mouth 1 (one) time each day Active venlafaxine XR (EFFEXOR-XR) 150 MG 24 hr capsule Take 1 capsule by mouth 1 (one) time each day Active alpha tocopherol (VITAMIN E) 1000 units capsule Take 1 capsule by mouth 1 (one) time each day Active Trulicity 1.5 MG/0.5ML solution pen-injector 08/02/2021 Active Active Problems Problem Noted Date Diagnosed Date Aortic valve stenosis 11/23/2022 Asthma 11/23/2022 Binge eating disorder, unspecified 11/23/2022 Bladder muscle dysfunction - overactive 11/23/19 23 Depressive disorder 11/23/2022 Overview (11/23/2022): managed by psych Diverticulosis of sigmoid colon 11/23/2022 Foot pain 11/23/2022 Gastroesophageal reflux disease 11/23/2022 History of adenomatous polyp of colon 11/23/2022 Insomnia 11/23/2022 Internal hemorrhoids 11/23/2022 Irritable bowel syndrome 11/23/2022 Severe obesity 11/23/2022 Osteoarthritis 11/23/2022 Overview (11/23/2022): OA left knee Xray 05/04/18 Recurrent major depressive episodes, mild 2022 Right bundle-branch block 11/23/2022 Spasm of back muscles 11/23/2022 Subluxation of foot joint 11/23/2022 Talipes planus 11/23/2022 Tubular adenomatous polyp of colon 11/23/2022 Type 2 diabetes mellitus 11/23/2022 Overview (11/23/2022): Dr. Russo- opthamologist; yearly DM eye exams. Urinary incontinence 11/23/2022 Vitamin D deficiency 11/23/2022 Cough 11/02/2022 Hypertension 08/18/2021 Benign hypertensive renal disease 08/17/2021 Chronic kidney disease stage 3 08/17/2021 Disorder of kidney and/or ureter 08/17/2021 Hyperlipidemia 11/24/2011 Immunizations Immunization Administration Dates Next Due DTaP 11/24/2011 Hep B, Unspecified 05/10/2013 Hepatitis A 06/10/2013 Hepatitis B 11/22/2013 Influenza Whole 11/24/2011 [place] SARS-COV-2 02/17/2021 Pneumococcal Conjugate 13-Valent 07/09/2015,08/0 03/2015,06/15/2015 Pneumococcal Polysaccharide 05/10/2013 Zoster 07/19/2016 Family History Medical History Relation Comments Hypertension Child Relation Status Comments Child Father Mother Social History Tobacco Use Types Packs/Day Years Used Date Smoking Tobacco: Former Smokeless Tobacco: Never Tobacco Cessation:Counseling Given: Not Answered Alcohol Use Standard Drinks/Week Comments No 0 (1 standard drink = 0.6 oz pur e alcohol) Comments Unknown Sex and Gender Information Value Date Recorded Sex Assigned at Not on file Legal Sex Female 5:06 PM EST Gender Identity Not on file Sexual Orientation Not on file Last Filed Vital Signs Vital Sign Reading Time Taken Comments Blood Pressure 138/70 11/23/2022 4:29 PM EST Pulse 61 11/23/2022 4:29 PM EST Temperature - - Respiratory Rate - - Oxygen Saturation 96% 08/18/2021 1:54 PM EDT Inhaled Oxygen Concentration - - Weight 112 kg (247 lb 9.6 oz) 11/23/2022 4:29 PM EST Height 167.6 cm (5' 6 ) 07/01/2020 12:00 PM EDT Body Mass Index 39.96 07/01/2020 12:00 PM EDT Plan of Treatment Health Maintenance Due Date Last Done Comments Breast Cancer Screening 1950 Colorectal Cancer Screening: Annual FOBT 1999 Colorectal Cancer Screening: Colonoscopy 1999 Colorectal Cancer Screening: Sigmoidoscopy 1999 Pneumococcal Vaccine: 50+ Years (3 of 3 - PCV20 or PCV21) 05/10/2018 07/09/2015, 06/17/2015, 06/15/2015, Additional history exists Diabetes: Hemoglobin A1C 11/23/2022 Diabetes: Ophthalmology Exam 11/23/2022 Diabetes: Pedal Pulse Checked 11/23/2022 Diabetes: Sensory Foot Exam 11/23/2022 Diabetes: Visual Foot Exam 11/23/2022 Influenza Vaccine (#1) 2025 11/24/2011 Hepatitis B Vaccine Aged Out 11/22/2013, 3 No longer eligible based on patient's age to complete this topic Pneumococcal Vaccine: Peds (0 to 5 Years) and At-Risk Patients (6 to 49 Years) Discontinued 07/09/2015, 06/17/2015, 06/15/2015, Additional history exists Insurance Medicare [facility] Medicaid [place] [facility] Medicaid [place] Care Teams Supervisor Tank House Relationship Specialty Start Date End Date Mauricio Cohen MD [facility] [address] [place] [id number] PCP - General 11/23/20
--- OUTSIDE RECORDS SUMMARY | 2025-10-17 18:05 | XMS_ITS | Clinical Summary ---
Author Organization [facility] ity Address [address] [place] [address] Care Team Providers Care Wash Helper Name Role Phone Mauricio Cohen MD Primary Care Provider [phone] Social History Tobacco Use Types Packs/Day Years Used Date Smoking Tobacco: Never Assessed Comments Unknown Sex and Gender Information Value Date Recorded Sex Assigned at Not on file Legal Sex Female 9:10 PM EST Gender Identity Not on file Sexual Orientation Not on file Plan of Treatment Health Maintenance Due Date Last Done Comments DTaP,Tdap,and Td Vaccines (1 - Tdap) 1969 Pneumococcal Vaccine: 50+ Ye ars (1 of 1 - PCV) 2000 Zoster Vaccines (1 of 2) 2000 Depression Screening 11/13/2024 RSV Immunization Adult Patie nts (1 - 1-dose 75+ series) 2025 COVID-19 Vaccine ( - 2024-2 6 season) 2025 Influenza Vaccine (#1) 2025 HIB Vaccines Aged Out No longer eligi ble based on patient's age to complete this topic HPV Vaccines Aged Out No longer eligi ble based on patient's age to complete this topic Hepatitis A Vaccines Aged Out No long er eligible based on patient's age to complete this topic Hepatitis B Vaccines Aged Out No long er eligible based on patient's age to complete this topic IPV Vaccines Aged Out No longer eligi ble based on patient's age to complete this topic MMR Vaccines Aged Out No longer eligi ble based on patient's age to complete this topic Meningococcal ACWY Vaccine Aged Out N o longer eligible based on patient's age to complete this topic Meningococcal B Vaccine Aged Out No l onger eligible based on patient's age to complete this topic RSV Immunization Patients Un yuridia 20 months Aged Out No longer eligible b ased on patient's age to complete this topic Varicella Vaccines Aged Out No longer eligible based on patient's age to complete this topic Care Teams Wash Helper Relationship Specialty Start Date End Date Mauricio Cohen MD [facility] Trista Sommers [address] [place] [address] PCP - General Internal Medicine 03/06/18
== END 2025-10-17 14:46 | disposition home or self-care (01) ==
LOC: HO.HKA 13:49
PROVIDERS: PCP Family Medicine; Visit Provider Internal Medicine Nephrology
DX: N18.31 Chronic kidney disease, stage 3a (principal); I10 Essential (primary) hypertension
CPT/HCPCS: 99214

== ENCOUNTER → 2025-10-17 13:48 | Outpatient (BNVA) | payer MEDICARE, OTHER, SELFPAY | PROVIDERS: PCP Family Medicine; Visit Provider Internal Medicine Nephrology | DX: N18.31 Chronic kidney disease, stage 3a (principal); I10 Essential (primary) hypertension | CPT/HCPCS: 99212 ==